=== PATIENT | male | born 1955 | race Caucasian/White ===

== ENCOUNTER 2024-01-31 15:55 | Inpatient (IN) | payer BC, MEDICAID ==
[~2024-01-31] VITALS: Ht 182.9 cm; Wt 142.0 kg
[2024-01-31 16:27] LABS: BASOPHILS % (AUTO) 0.5 % (0-1); EOSINOPHILS # (AUTO) 0.1 X10'3 (0-0.9); EOSINOPHILS % (AUTO) 1.1 % (0-6); HEMATOCRIT 38.2 % (42.0-52.0); HEMOGLOBIN 12.2 g/dl (14.0-17.9); LYMPHOCYTES # (AUTO) 0.9 X10'3 (1.1-4.8); LYMPHOCYTES % (AUTO) 10.9 % (21-51); MEAN CORPUSCULAR HEMOGLOBIN 25.1 PG (27.0-31.0); MEAN CORPUSCULAR HGB CONC 31.9 g/dL (33.0-36.5); MEAN CORPUSCULAR VOLUME 78.5 FL (78-98); MEAN PLATELET VOLUME 7.8 FL (7.4-10.4); MONOCYTES # (AUTO) 0.6 X10'3 (0-0.9); MONOCYTES % (AUTO) 7.5 % (2-12); NEUTROPHILS # (AUTO) 6.8 X10'3 (1.8-7.7); PLATELET COUNT 174 X10'3 (140-440); RED BLOOD COUNT 4.87 X10'6 (4.70-6.10); WHITE BLOOD COUNT 8.5 X10'3 (4.5-11.0)
[2024-01-31 16:57] LABS: ANION GAP 4 (8-16); BLOOD UREA NITROGEN 20 MG/DL (7-18); CALCIUM 8.6 MG/DL (8.5-10.1); CHLORIDE 98 MMOL/L (99-107); CREATININE 0.91 MG/DL (0.60-1.10); GLUCOSE 131 MG/DL (70-104); POTASSIUM 3.5 MMOL/L (3.5-5.1); PRO BRAIN NATRIURETIC PEPTIDE 278 PG/ML (0-125); SODIUM 140 MMOL/L (135-145); TOTAL CARBON DIOXIDE 37.7 MMOL/L (24-32); eCRCL 85 ML/MIN; eGFR 83 ML/MIN
[2024-01-31 17:09] VITALS: PULSE 87; RESP 19; O2SAT 97
[2024-01-31 17:25] LABS: ANISOCYTOSIS 2+; ELLIPTOCYTES FEW; MICROCYTOSIS 1+; PLATELET ESTIMATE NORMAL; POIKILOCYTOSIS FEW; POLYCHROMASIA FEW; STOMATOCYTES FEW; TOTAL CELLS COUNTED 100
[2024-01-31] MEDS ORDERED: ASPI-1265 PO (17:57)
[2024-01-31] MEDS ORDERED: FURO-150 PO (18:00)
[2024-01-31] MEDS ORDERED: GABA800T11 PO (18:03)
[2024-01-31] MEDS ORDERED: BACL20TA11 PO (18:05)
[2024-01-31] MEDS ORDERED: METF-1203 PO (18:06)
[2024-01-31] MEDS ORDERED: HYDR-3965 PO (18:11)
[2024-01-31] MEDS ORDERED: RIVA10TA PO (18:12)
[2024-01-31] MEDS ORDERED: FLO0.4C PO (18:13)
[2024-01-31] MEDS ORDERED: ARIP5TAB12 PO (18:16)
[2024-01-31] MEDS ORDERED: FLUO40CA10 PO (18:17)
[2024-01-31] MEDS ORDERED: EMPA10TA PO (18:18)
[2024-01-31] MEDS ORDERED: OMEP40CA21 PO (18:18)
[2024-01-31] MEDS ORDERED: ATOR40TA PO (18:20)
[2024-01-31] MEDS ORDERED: BUDE10.7 INH (18:21)
[2024-01-31 18:54] VITALS: PULSE 81; RESP 17; O2SAT 95
[2024-01-31 19:22] LABS: ABG BASE EXCESS 7.6 mmol/L (-2.0-2.0); ABG HCO3 36.9 mmol/L (22.0-26.0); ABG OXYGEN SATURATION 95.5 % (94-97); ABG PCO2 (T) 77.6 mmHg (35.0-48.0); ABG PH (T) 7.293 (7.340-7.440); ALLEN'S TEST POSITIVE; FCOHb 1.7 % (0.0-3.9); FHHb 4.4 % (0.0-5.0); FMetHb 0.3 % (0.0-1.5); FO2Hb 93.6 % (94-97); MODE MASK - BIPAP; PATIENT TEMPERATURE 36.7; RESPIRATORY RATE 12 b/min; TIDAL VOLUME 692 mL; TOTAL HEMOGLOBIN 12.4 G/dl (14.0-17.9)
[2024-01-31] MEDS: ipratropium/albuterol 3ml nebule NEB PRN (19:28)
[2024-01-31 19:29] VITALS: PULSE 82; RESP 27; O2SAT 94
[2024-01-31 19:38] VITALS: PULSE 85; RESP 26
[2024-01-31] MEDS ORDERED: magnesium 4gm in 100ml NS 100 ML IV PRN (19:40)
[2024-01-31] MEDS ORDERED: magnesium hydroxide 30ml (MOM) UD suspension PO PRN (19:40)
[2024-01-31] MEDS ORDERED: morphine 2 MG/ML inj. syringe IV PRN ×2 (19:40)
[2024-01-31] MEDS ORDERED: mag hydrox/Alum hydrox/simeth 30ml oral suspension PO PRN (19:40)
[2024-01-31] MEDS ORDERED: magnesium Cl slow-release 64mg tablet PO PRN (19:40)
[2024-01-31] MEDS ORDERED: acetaminophen 325mg tablet PO PRN (19:40)
[2024-01-31] MEDS ORDERED: ondansetron/PF 4mg/2ml inj IV PRN (19:40)
[2024-01-31] MEDS ORDERED: magnesium 2GM in 50ml NS 50 ML IV PRN (19:40)
[2024-01-31] MEDS ORDERED: potassium Cl 40MEQ/1/2NS 520ml 520 ML IV PRN (19:40)
[2024-01-31] MEDS ORDERED: HYDROcodone/acetaminophen 5mg/325mg tablet PO PRN (19:50)
[2024-01-31] MEDS: K and/or MAG REPLACEMENT MC SCH (20:00)
[2024-01-31] MEDS: budesonide 0.5mg/2ml UD nebule IH SCH (21:09)
[2024-01-31] MEDS: baclofen 10mg tablet PO SCH (21:56)
[2024-01-31] MEDS: furosemide 10 MG/1 ML 10ml inj IV SCH (21:56)
[2024-01-31] MEDS: gabapentin 400mg capsule PO SCH (21:57)
[2024-01-31 22:00] VITALS: BP 106/52; PULSE 92; RESP 20; TEMP 98.5; O2SAT 98
[2024-01-31] MEDS: docusate sod 100mg capsule PO SCH (22:12)
[2024-01-31] MEDS ORDERED: glucagon, human recombinant 1mg kit SUBCUT PRN (22:35)
[2024-01-31] MEDS ORDERED: dextrose 50%-water 50ml dispensing syringe IV PRN ×2 (22:35)
[2024-01-31] MEDS ORDERED: DEXTROSE 15 GM of carb/4 tabs (each vial/BOTTLE has 4 tablets) PO PRN ×2 (22:35)
[2024-01-31 23:58] VITALS: PULSE 83; RESP 17; O2SAT 92
[2024-02-01] VITALS (23 sets, daily range): BP systolic 98–145; BP diastolic 55–79; PULSE 65–101; RESP 13–28; TEMP 97.2–98.7; O2SAT 87–99
[2024-02-01] MEDS: albuterol 2.5 MG/3 ML nebule NEB SCH (02:23)
[2024-02-01 06:24] LABS: BASOPHILS % (AUTO) 0.3 % (0-1); EOSINOPHILS # (AUTO) 0.1 X10'3 (0-0.9); EOSINOPHILS % (AUTO) 1.8 % (0-6); HEMATOCRIT 37.3 % (42.0-52.0); HEMOGLOBIN 11.6 g/dl (14.0-17.9); LYMPHOCYTES # (AUTO) 0.6 X10'3 (1.1-4.8); LYMPHOCYTES % (AUTO) 7.5 % (21-51); MEAN CORPUSCULAR HEMOGLOBIN 24.5 PG (27.0-31.0); MEAN CORPUSCULAR HGB CONC 31.2 g/dL (33.0-36.5); MEAN CORPUSCULAR VOLUME 78.7 FL (78-98); MONOCYTES # (AUTO) 0.5 X10'3 (0-0.9); MONOCYTES % (AUTO) 6.9 % (2-12); NEUTROPHILS # (AUTO) 6.2 X10'3 (1.8-7.7); NEUTROPHILS % (AUTO) 83.5 % (42-75); PLATELET COUNT 165 X10'3 (140-440); RED BLOOD COUNT 4.73 X10'6 (4.70-6.10); RED CELL DISTRIBUTION WIDTH 19.3 % (11.5-14.5); WHITE BLOOD COUNT 7.4 X10'3 (4.5-11.0)
[2024-02-01 06:39] LABS: HEMOGLOBIN A1C 6.2 % (4.5-6.2)
[2024-02-01 06:49] LABS: ALANINE AMINOTRANSFERASE 62 U/L (12-78); ALBUMIN 2.8 G/DL (3.4-5.0); ALBUMIN/GLOBULIN RATIO 0.7 (1.1-1.5); ALKALINE PHOSPHATASE 76 IU/L (46-116); ANION GAP 2 (8-16); ASPARTATE AMINO TRANSFERASE 25 U/L (10-37); BILIRUBIN,TOTAL 0.9 MG/DL (0.1-1.0); BLOOD UREA NITROGEN 18 MG/DL (7-18); BUN/CREATININE RATIO 24.3 (10.0-20.0); CALCIUM 8.5 MG/DL (8.5-10.1); CHLORIDE 100 MMOL/L (99-107); CHOL/HDL RATIO 2.3 (0.00-4.99); CHOLESTEROL 102 MG/DL (0-200); CREATININE 0.74 MG/DL (0.60-1.10); GLUCOSE 112 MG/DL (70-104); HDL CHOLESTEROL 45 MG/DL (35-60); LDL CHOLESTEROL 52 MG/DL (50-100); MAGNESIUM 2.6 MG/DL (1.5-2.4); POTASSIUM 3.3 MMOL/L (3.5-5.1); SODIUM 140 MMOL/L (135-145); THYROID STIMULATING HORMONE 1.33 ulU/ml (0.34-4.50); TOTAL PROTEIN 6.7 G/DL (6.4-8.2); TRIGLYCERIDES 45 MG/DL (20-135); eCRCL 105 ML/MIN; eGFR > 90 ML/MIN
[2024-02-01] MEDS: aspirin 81mg tab.chew PO SCH (07:41)
[2024-02-01] MEDS: rivaroxaban 10mg tablet PO SCH (07:42)
[2024-02-01] MEDS: FLUoxetine 20mg capsule PO SCH (07:42)
[2024-02-01] MEDS: tamsulosin 0.4mg capsule PO SCH (07:42)
[2024-02-01] MEDS: aripiprazole 5mg tablet PO SCH (07:42)
[2024-02-01] MEDS: pantoprazole 40mg Tablet.DR PO SCH (07:43)
[2024-02-01] MEDS: atorvastatin 20mg tablet PO SCH (07:43)
[2024-02-01] MEDS: EMPAGLIFLOZIN 10 MG TABLET PO SCH (07:43)
[2024-02-01] MEDS ORDERED: potassium Cl 20 mEq SR tablet PO PRN (08:00)
[2024-02-01] MEDS ORDERED: heparin, porcine 5000 units/ml vial SQ SCH (08:00)
[2024-02-01] MEDS: potassium Cl 20 mEq SR tablet PO PRN (10:01)
[2024-02-01 14:06] LABS: D-DIMER 0.86 MG/L FEU (0-0.50)
[2024-02-01] MEDS: baclofen 10mg tablet PO SCH (14:08)
[2024-02-01] MEDS: methylPREDNISolone sod succ 125mg/2ml vial IV ONE (14:08)
[2024-02-01] MEDS: azithromycin/NS 500mg/250ml 250 ML IV SCH (14:09)
[2024-02-01] MEDS: CefTRIAXone/D5W-Rocephin 1gm 50 ML IV SCH (14:09)
[2024-02-01] MEDS: ipratropium/albuterol 3ml nebule NEB SCH (15:14)
[2024-02-01] MEDS ORDERED: iohexol 350MG/ML 100ml bottle IV ONE (16:39)
[2024-02-01] MEDS: INSULIN LISPRO 100 UNIT/ML INSULN.PEN MULTI-DOSE SQ SCH (17:00)
[2024-02-01] MEDS: sacubitril/valsartan 24mg-26mg tablet PO SCH (19:12)
[2024-02-02] VITALS (20 sets, daily range): BP systolic 96–112; BP diastolic 59–67; PULSE 63–88; RESP 9–26; TEMP 97.4–98.1; O2SAT 87–95
[2024-02-02 07:57] LABS: BASOPHILS % (AUTO) 0.1 % (0-1); EOSINOPHILS % (AUTO) 0 % (0-6); HEMATOCRIT 38.8 % (42.0-52.0); HEMOGLOBIN 12.2 g/dl (14.0-17.9); LYMPHOCYTES # (AUTO) 0.7 X10'3 (1.1-4.8); LYMPHOCYTES % (AUTO) 8.8 % (21-51); MEAN CORPUSCULAR HEMOGLOBIN 24.7 PG (27.0-31.0); MEAN CORPUSCULAR HGB CONC 31.4 g/dL (33.0-36.5); MEAN CORPUSCULAR VOLUME 78.7 FL (78-98); MEAN PLATELET VOLUME 8.1 FL (7.4-10.4); MONOCYTES # (AUTO) 0.5 X10'3 (0-0.9); MONOCYTES % (AUTO) 6.7 % (2-12); NEUTROPHILS # (AUTO) 6.6 X10'3 (1.8-7.7); NEUTROPHILS % (AUTO) 84.4 % (42-75); PLATELET COUNT 203 X10'3 (140-440); RED BLOOD COUNT 4.93 X10'6 (4.70-6.10); RED CELL DISTRIBUTION WIDTH 19.3 % (11.5-14.5); WHITE BLOOD COUNT 7.8 X10'3 (4.5-11.0)
[2024-02-02] MEDS ORDERED: spironolactone 25 MG tablet PO SCH (08:30)
[2024-02-02] MEDS: methylPREDNISolone sod succ 125mg/2ml vial IV SCH (09:13)
[2024-02-02 09:49] LABS: ALANINE AMINOTRANSFERASE 53 U/L (12-78); ALBUMIN 2.9 G/DL (3.4-5.0); ALBUMIN/GLOBULIN RATIO 0.7 (1.1-1.5); ALKALINE PHOSPHATASE 75 IU/L (46-116); ANION GAP 2 (8-16); ASPARTATE AMINO TRANSFERASE 28 U/L (10-37); BILIRUBIN,TOTAL 0.7 MG/DL (0.1-1.0); BLOOD UREA NITROGEN 22 MG/DL (7-18); BUN/CREATININE RATIO 23.4 (10.0-20.0); CALCIUM 9.2 MG/DL (8.5-10.1); CHLORIDE 100 MMOL/L (99-107); CREATININE 0.94 MG/DL (0.60-1.10); GLUCOSE 143 MG/DL (70-104); MAGNESIUM 2.7 MG/DL (1.5-2.4); POTASSIUM 3.4 MMOL/L (3.5-5.1); SODIUM 140 MMOL/L (135-145); TOTAL CARBON DIOXIDE 37.9 MMOL/L (24-32); eCRCL 83 ML/MIN; eGFR 80 ML/MIN
[2024-02-03] VITALS (8 sets, daily range): BP systolic 100–108; BP diastolic 55–64; PULSE 65–76; RESP 12–30; TEMP 96.6–97; O2SAT 92–96
[2024-02-03 06:39] LABS: BASOPHILS % (AUTO) 0.2 % (0-1); EOSINOPHILS % (AUTO) 0 % (0-6); HEMATOCRIT 39.6 % (42.0-52.0); HEMOGLOBIN 12.5 g/dl (14.0-17.9); LYMPHOCYTES # (AUTO) 0.7 X10'3 (1.1-4.8); LYMPHOCYTES % (AUTO) 7.9 % (21-51); MEAN CORPUSCULAR HEMOGLOBIN 24.8 PG (27.0-31.0); MEAN CORPUSCULAR HGB CONC 31.6 g/dL (33.0-36.5); MEAN CORPUSCULAR VOLUME 78.4 FL (78-98); MEAN PLATELET VOLUME 8.1 FL (7.4-10.4); MONOCYTES # (AUTO) 0.5 X10'3 (0-0.9); MONOCYTES % (AUTO) 5.7 % (2-12); NEUTROPHILS # (AUTO) 7.5 X10'3 (1.8-7.7); NEUTROPHILS % (AUTO) 86.2 % (42-75); PLATELET COUNT 211 X10'3 (140-440); RED BLOOD COUNT 5.05 X10'6 (4.70-6.10); RED CELL DISTRIBUTION WIDTH 19.4 % (11.5-14.5); WHITE BLOOD COUNT 8.7 X10'3 (4.5-11.0)
[2024-02-03 07:04] LABS: ALANINE AMINOTRANSFERASE 50 U/L (12-78); ALBUMIN 2.9 G/DL (3.4-5.0); ALBUMIN/GLOBULIN RATIO 0.7 (1.1-1.5); ALKALINE PHOSPHATASE 72 IU/L (46-116); ANION GAP 0 (8-16); ASPARTATE AMINO TRANSFERASE 40 U/L (10-37); BILIRUBIN,TOTAL 0.6 MG/DL (0.1-1.0); BLOOD UREA NITROGEN 26 MG/DL (7-18); BUN/CREATININE RATIO 32.5 (10.0-20.0); CALCIUM 9.2 MG/DL (8.5-10.1); CHLORIDE 103 MMOL/L (99-107); GLUCOSE 130 MG/DL (70-104); MAGNESIUM 2.7 MG/DL (1.5-2.4); POTASSIUM 4.1 MMOL/L (3.5-5.1); SODIUM 141 MMOL/L (135-145); TOTAL CARBON DIOXIDE 38.2 MMOL/L (24-32); eCRCL 97 ML/MIN; eGFR > 90 ML/MIN
[2024-02-03 07:08] LABS: ANISOCYTOSIS 2+; HYPOCHROMASIA 1+; MICROCYTOSIS 1+; PLATELET ESTIMATE NORMAL; POLYCHROMASIA 1+
[2024-02-03] MEDS ORDERED: CEFD300C3 PO (10:10)
[2024-02-03] MEDS ORDERED: FURO-150 PO (10:10)
[2024-02-03] MEDS ORDERED: PRED10TA23 PO (10:10)
[2024-02-03] MEDS ORDERED: SACU1TAB PO (10:10)
[2024-02-03] MEDS ORDERED: LACT1CAP26 PO (18:01)
== END 2024-02-03 12:13 | disposition home health service (06) | DRG 291 ==
LOC: ER 15:56 → ED HOLD 19:40 → UNDOADMIN 19:40 → ED HOLD 20:20 → PCU 3S 22:33
PROVIDERS: ADMIT Surgery; ATTEND Family Medicine
PROC: 5A09357 Assistance with Respiratory Ventilation, Less than 24 Consecutive Hours, Continuous Positive Airway Pressure (ICD-10-PCS; 2024-01-31)
PROC: B32T1ZZ Computerized Tomography (CT Scan) of Left Pulmonary Artery using Low Osmolar Contrast (ICD-10-PCS; principal; 2024-02-01)
PROC: B3201ZZ Computerized Tomography (CT Scan) of Thoracic Aorta using Low Osmolar Contrast (ICD-10-PCS; 2024-02-01)
PROC: B32S1ZZ Computerized Tomography (CT Scan) of Right Pulmonary Artery using Low Osmolar Contrast (ICD-10-PCS; 2024-02-01)
PROC: 5A09357 Assistance with Respiratory Ventilation, Less than 24 Consecutive Hours, Continuous Positive Airway Pressure (ICD-10-PCS; 2024-02-01)
PROC: 5A09357 Assistance with Respiratory Ventilation, Less than 24 Consecutive Hours, Continuous Positive Airway Pressure (ICD-10-PCS; 2024-02-02)
DX: I50.33 Acute on chronic diastolic (congestive) heart failure (principal); J96.21 Acute and chronic respiratory failure with hypoxia; J96.22 Acute and chronic respiratory failure with hypercapnia; J44.0 Chronic obstructive pulmonary disease with (acute) lower respiratory infection; E87.4 Mixed disorder of acid-base balance; Z68.41 Body mass index [BMI] 40.0-44.9, adult; N17.9 Acute kidney failure, unspecified; J44.1 Chronic obstructive pulmonary disease with (acute) exacerbation; E66.2 Morbid (severe) obesity with alveolar hypoventilation; E11.22 Type 2 diabetes mellitus with diabetic chronic kidney disease; I27.20 Pulmonary hypertension, unspecified; M54.9 Dorsalgia, unspecified; G89.29 Other chronic pain; I27.81 Cor pulmonale (chronic); D50.9 Iron deficiency anemia, unspecified; I25.10 Atherosclerotic heart disease of native coronary artery without angina pectoris; N18.2 Chronic kidney disease, stage 2 (mild); Z79.82 Long term (current) use of aspirin; Z79.899 Other long term (current) drug therapy; Z79.84 Long term (current) use of oral hypoglycemic drugs
CPT/HCPCS: 36415; 36600; 71045; 71275; 80048; 80053; 80061; 82803; 82948; 83036; 83605; 83735; 83880; 84132; 84145; 84443; 84484; 85007; 85008; 85018; 85025; 85379; 87040; 87081; 93005; 93306; 94640; 94660; 94760; 97110; 97161; 97530; 99285; A4615; A6590; G0378; J0456; J0696; J1815; J1940; J2919; J3490; J7040; Q9967

== ENCOUNTER 2025-05-01 07:22 | Inpatient (IN) | payer BC, MEDICAID ==
[2025-05-01] VITALS (19 sets, daily range): BP systolic 77–153; BP diastolic 38–96; PULSE 65–103; RESP 16–26; O2SAT 94–99
[~2025-05-01] VITALS: Ht 172.7 cm; Wt 140.1 kg
[~2025-05-01 07:22] MED LIST: ARIP5TAB12 PO; ASPI-1265 PO; ATOR40TA PO; BACL20TA11 PO; BUDE10.7 INH; EMPA10TA PO; FLUO40CA10 PO; FURO-150 PO; GABA-1555 PO; HYDR-3965 PO; LACT1CAP26 PO; METF-1203 PO; OMEP40CA21 PO; RIVA10TA PO; SACU1TAB PO; TAMS-55 PO
[2025-05-01] MEDS: FENTANYL-0.9 % NACL/PF 100 ML ONE (07:39)
[2025-05-01 07:41] LABS: MEAN PLATELET VOLUME 7.9 FL (7.4-10.4); RED CELL DISTRIBUTION WIDTH 18.8 % (11.5-14.5)
[2025-05-01] MEDS ORDERED: ketamine 50mg/5ml syringe IV ONE (07:50)
[2025-05-01] MEDS: ketamine 10mg/ml 20ml inj vial IV ONE (07:52)
[2025-05-01] MEDS: rocuronium 10mg/ml inj IV ONE (07:55)
[2025-05-01] MEDS ORDERED: epiNEPHrine 0.1mg/ml 10ml syringe ONE (08:00)
[2025-05-01 08:06] LABS: CREATININE 0.89 MG/DL (0.60-1.10); PRO BRAIN NATRIURETIC PEPTIDE < 30 PG/ML (0-125); TOTAL CARBON DIOXIDE 29.8 MMOL/L (24-32); eCRCL 76 ML/MIN; eGFR 85 ML/MIN
[2025-05-01 08:12] LABS: ABG BASE EXCESS 5.7 mmol/L (-2.0-3.0); ABG HCO3 36.2 mmol/L (21.0-28.0); ABG OXYGEN SATURATION 96.8 % (94.0-98.0); ABG PCO2 (T) 90.7 mmHg (35.0-48.0); ABG PH (T) 7.219 (7.350-7.450); ABG PO2 (T) 110.6 mmHg (83.0-108.0); ALLEN'S TEST POSITIVE; FCOHb 1.6 % (0.5-1.5); FHHb 3.1 % (0.0-5.0); FIO2 80.0 mmHg/%; FMetHb 0.0 % (0.0-1.5); FO2Hb 95.3 % (94.0-98.0); MODE VENT - AC/PRVC; PATIENT TEMPERATURE 37.0; PEEP 5 cm H2O; RESPIRATORY RATE 16 b/min; TIDAL VOLUME 500 mL; TOTAL HEMOGLOBIN 12.0 G/dl (13.5-17.5)
--- NOTE | 2025-05-01 08:23 | RADIOLOGY REPORT ---
CHEST RADIOGRAPH Indication:CP Technique: Single frontal view of the chest was obtained COMPARISON: January 31, 2024 FINDINGS: Lines and Tubes: Endotracheal tube tip projects approximately 5.3 cm above the level of the samara. Lungs: Diffuse increased prominence of the pulmonary vasculature and right hemidiaphragmatic elevatio n. Pleura: No effusion. No pneumothorax. Cardiomediastinal contours: Unremarkable Bones: Unremarkable IMPRESSION: 1. Diffuse increased prominence of the pulmonary vasculature and right hemidiaphragmatic elevation. 2. Endotracheal tube as above.
[2025-05-01] MEDS ORDERED: propofol 1000mg/100ml bottle 100 ML IV SCH (08:25)
--- NOTE | 2025-05-01 08:41 | Physician Documentation ---
History of Present Illness General Chief Complaint: Respiratory Distress Stated Complaint: ALOC Time Seen by MD: 08:32 History of Present Illness Initial Comments The patient is a 69-year-old male with a history of COPD and CHF who was brought in by ambulance obtunded and in respiratory failure. The patient's caregiver had enough heard from him after an attempted contact and asked police to do a welfare check. They were not able to enter his premises and 911 was summoned. They broke into his house and found him obtunded on the floor. Oxygen saturations were in the low 80s. The oxygen saturations came up with a Ventimask but the patient remained obtunded. GCS on arrival was eight, patient obtunded. He was promptly intubated. Medication Reconciliation Allergies: Coded Allergies: No Known Allergies (Unverified , 05/01/25) Scheduled Aripiprazole (Aripiprazole), 1 TAB PO DAILY, (Reported) Aspirin (Aspir 81), 1 TAB PO DAILY, (Reported) Atorvastatin Calcium (Atorvastatin Calcium), 2 TAB PO DAILY, (Reported) Buprenorphine Hcl (Buprenorphine Hcl), 0.5 TAB SL QAM, (Reported) Buprenorphine Hcl (Buprenorphine Hcl), 1 TAB SL HS, (Reported) Empagliflozin (Jardiance), 1 TAB PO DAILY, (Reported) Fluoxetine Hcl (Fluoxetine Hcl), 1 CAP PO DAILY, (Reported) Fluticasone/Umeclidin/Vilanter (Trelegy Ellipta 100-62.5-25), 1 PUFFS INH DAILY, (Reported) Furosemide (Furosemide), 1 TAB PO DAILY, (Reported) Gabapentin (Gabapentin), 1 TAB PO DAILY, (Reported) Metformin HCl (Metformin HCl), 1 TAB PO DAILY, (Reported) Omeprazole (Omeprazole), 1 CAP PO DAILY, (Reported) Potassium Chloride (Potassium Chloride), 1 TAB PO DAILY, (Reported) Rivaroxaban (Xarelto), 1 TAB PO DAILY, (Reported) Sacubitril/Valsartan (Entresto 24 mg-26 mg Tablet), 1 TAB PO Q12H, (Reported) Silver Sulfadiazine (Ssd), 1 APPLIC TOP DAILY, (Reported) Tamsulosin Hcl* (Flomax*), 1 CAP PO DAILY, (Reported) Scheduled PRN Baclofen (Baclofen), 1 TAB PO TID PRN for MUSCLE SPASM, (Reported) Discontinued Medications Aripiprazole* (Abilify*), 5 MG PO DAILY, (Reported) Discontinued Reason: Other Aspirin (Aspirin), 1 TAB PO DAILY, (Reported) Discontinued Reason: Other Atorvastatin Calcium* (Lipitor*), 1 TAB PO DAILY, (Reported) Discontinued Reason: Other Baclofen (Baclofen), 1 TAB PO TID, (Reported) Discontinued Reason: Other Budesonide/Glycopyr/Formoterol (Breztri Aerosphere Inhaler), 2 PUFFS INH Q12H, (Reported) Discontinued Reason: Other Fluoxetine HCl (Prozac), 1 CAP PO DAILY, (Reported) Discontinued Reason: Other Furosemide* (Lasix*), 1 TAB PO BID Discontinued Reason: Other Hydrocodone Bit/Acetaminophen 5/325 MG (Maurice 5/325 MG), 1 TAB PO Q6H PRN for pain, (Reported) Discontinued Reason: Other Lactobacillus Rhamnosus (Culturelle), 1 CAP PO DAILY Discontinued Reason: Other Omeprazole (Prilosec), 1 CAP PO DAILY, (Reported) Discontinued Reason: Other Sacubitril/Valsartan (Entresto 24 mg-26 mg Tablet), 1 TABLET PO BID Discontinued Reason: Other Tamsulosin Hcl* (Flomax*), 1 CAP PO DAILY, (Reported) Discontinued Reason: Other Past Medical History Past Medical History: Congestive Heart Failure, COPD Review of Systems ROS Unable to obtain due to obtundation. Physical Exam Physical Exam Vital Signs: Temperature: 97.1, Heart Rate: 102, Respiratory Rate: 24, BP: 155/95, Pulse Oximetry: 99, Weight: 145.000 Oxygen Flow Rate: 15.0 Physical Exam Physical Exam Vitals and nursing note reviewed. Constitutional: General: GCS 7-8. Obtunded. Respiratory distress. Appearance: Morbidly obese. HENT: Head: Normocephalic and atraumatic. Mouth/Throat: Mouth: Mucous membranes are moist. Pharynx: Oropharynx is clear. Eyes: General: No scleral icterus. Extraocular Movements: Extraocular movements intact. Pupils: Pupils are equal, round, and reactive to light. Neck: Supple, no Kernig or Brudzinski sign. Cardiovascular: Rate and Rhythm: Normal rate and regular rhythm. Heart sounds: No murmur heard. Pulmonary: Effort: Respiratory distress. Breath sounds: Diminished bilaterally. Abdominal: General: There is no distension. Palpations: There is no fluid wave, hepatomegaly or mass. Tenderness: There is no abdominal tenderness. There is no guarding. Musculoskeletal: General: No swelling or deformity. Neurological: Mental Status: Moved all extremities prior to paralysis and intubation. Procedures Procedures Endotracheal Intubation Time: 7:30 a.m. A time out was performed. My hands were washed immediately prior to the procedure. I wore a surgical cap, mask with protective eyewear, gown and gloves throughout the procedure. The patient was placed on a school bus monitor including continuous pulse oximetry. Rapid Sequence Intubation was conducted. The patient received 20 mg of etomidate for induction and 100 mg of rocuronium for adequate paralysis. Cricoid pressure was maintained from time induction agent was given to time of cuff balloon inflation. Using a 4. Standard geometry laryngoscope an d a size eight mm endotracheal tube with stylet, the patient was intubated on the 1st attempt. The stylet was removed and cuff balloon was inflated. Appropriate endotracheal tube position was confirmed by direct visualization of vocal cord passage, fogging of the tube, CO2 colormetric indicator and symmetric breath sounds. The tube was secured at 27 cm at the lips. Post intubation chest x-ray is pending at this time. No apparent complications noted. PROCEDURE: Ultrasound Guided right internal jugular Central Venous Line Insertion DIAGNOSIS: Respiratory failure and hypotension Procedure Performed by Savi Luis MD INFORMED CONSENT: Informed Consent was obtained. Procedural pause was observed at 7:45 a.m.. I have verified the correct patient , correct procedure, correct position, correct site, and available equipment. The site was marked. PROCEDURE START TIME: 7:45 a.m. PROCEDURE STOP TIME: 8:10 a.m. INDICATION: Need to administer pressors and numerous other medications PROCEDURE IN DETAIL: The patient and ultrasound transducer were prepped and draped in sterile fashion. Using the linear probe covered in a sterile sheath, a short axis view of the vein was obtained. This vein was completely compressible and was identified as separate from the adjacent non-compressible arterial structure. No intraluminal clot was visualized. Longitudinal views of the target vein were also obtained. No intravascular thrombus was identified. Under dynamic ultrasound guidance, an 18 gauge needle was advanced with return of dark red, non-pulsatile blood. A wire was advanced without difficulty. A 0.5 cm incision was made at the skin and the subcutaneous tissue is dilated. The catheter was advanced over the wire via the Seldinger technique and the wire was removed. All ports flushed without difficulty. The catheter was secured in place with sutures and the entrance site covered with a sterile, transparent, semi-permeable dressing With placement of CHG Biopatch. Placement was confirmed by radiography. These images were captured, recorded, and archived. The patient tolerated the procedure well with no complications. Blood loss was minimal. Conclusion: Successful central venous catheterization under ultrasound guidance. Intubation Time of Intubation: 735 Endotracheal Tube Size: 8.0 ETT Confirmation: Ascultation, CO2 Detector, Direct Visualization, Condensation in ETT Progress Results/Orders Results/Orders Orders - SAVI LUIS MD Chest,Single View (05/01/25:26) Monitor (05/01/25 07:26) Saline Lock (05/01/25:) Oxygen (05/01/25:) Culture Blood (05/01/25:) Fentanyl-0.9 % Nacl/Pf (Fentanyl 1,000mc (05/01/25 07:50) Abg (Arterial Blood Gas) (05/01/25 07:50) Cult Sputum + Gram Stain (05/01/25 07:55) Chest,Single View (05/01/25 08:33) Ipratropium/Albuterol Nebule (Ipratrop/A (05/01/25 11:00) Propofol 1000mg/100ml Bottle (Diprivan I (05/01/25 08:40) Ventilator Settings (05/01/25 08:45) Abg (Arterial Blood Gas) (05/01/25 10:00) Echocardiogram (05/01/25 09:51) Norepinephrine 8mg/ 250ml Ns (Norepineph (05/01/25 07:50) Completed Orders - SAVI LUIS MD Chest,Single View (05/01/25:26) Cbc/Diff (05/01/25:) BMP (05/01/25 07:26) PBNP (05/01/25 07:) Electrocardiogram (05/01/25:) Hs Troponin I W Calculations (8/20/25 07:26) Hs Troponin I W Calculations (05/01/25 09:26) Hs Troponin I W Calculations (05/01/25 10:26) Procalcitonin (05/01/25 07:26) Lacticsepsis (05/01/25 07:26) Ketamine 10mg/Ml 20ml Inj (Ketamine 10mg (05/01/25 07:50) Etomidate Inj (Amidate Inj) (05/01/25 07:55) Rocuronium Inj. (Zemuron Inj) (05/01/25 07:55) Potassium Cl 10meq/100ml Bag (Potassium (05/01/25 08:15) Propofol 1000mg/100ml Bottle (Diprivan I (05/01/25 08:25) Chest,Single View (05/01/25 08:33) Cefepime 2gm In D5w 50ml (Cefepime-D5w 2 (05/01/25 08:39) Azithromycin/Ns 500mg/250ml (Zithromax/N (05/01/25 08:35) Potassium Cl 10meq/100ml Bag (Potassium (05/01/25 08:40) Magnesium Sulf-Water 2g/50ml (Magnesium (05/01/25 08:40) * Rt Notification Q1H (05/01/25 08:45) Lactic,2hr (05/01/25 09:02) MG (05/01/25 07:33) Echocardiogram (05/01/25 09:51) CMP (05/01/25 09:51) Iohexol 350mg/Ml 100ml (Omnipaque 350mg/ (05/01/25 10:33) Norepinephrine 8mg/ 250ml Ns (Norepineph (05/01/25 10:33) Electrocardiogram (05/01/25 10:46) Ua W/Microscopic, Cult If Ind (05/01/25 13:51) Medications Received in ER Medications (Trade) Dose Ordered Sig/Phi Route PRN Reason Start Time Stop Time Status Last Admin Dose Admin Cefepime/Dextrose 50 ml @ 100 mls/hr ONCE ONCE IV 05/01/25 08:39 05/01/25 09:08 DC 05/01/25 09:46 100 MLS/HR Azithromycin 250 ml @ 250 mls/hr ONCE ONCE IV 05/01/25 08:35 05/01/25 09:34 DC 05/01/25 10:59 250 MLS/HR Potassium Chloride 100 ml @ 100 mls/hr Q1H IV 05/01/25 08:40 05/01/25 09:39 DC 05/01/25 09:46 100 MLS/HR Magnesium Sulfate 50 ml @ 25 mls/hr ONCE ONCE IV 05/01/25 08:40 05/01/25 10:39 DC 05/01/25 11:04 25 MLS/HR Propofol 100 ml @ 4.35 mls/hr Q23H IV 05/01/25 08:40 05/01/25 09:00 4.35 MLS/HR Norepinephrine Bitartrate 250 ml @ ud STK-MED ONCE IV 05/01/25 10:33 05/01/25 10:34 DC 05/01/25 10:42 0 MLS/HR Vital Signs 05/01/25 05/01/25 05/01/25 05/01/25 07:28 07:39 07:46 07:50 Temp 97.1 Pulse 102 Resp 25 24 35 B/P (MAP) 90/44 76/40 Pulse Ox 89 O2 Flow Rate 15.0 05/01/25 05/01/25 05/01/25 05/01/25 07:52 07:55 07:58 08:01 Pulse 103 105 101 Resp 25 16 B/P (MAP) 77/38 (51) 74/31 (45) Pulse Ox 99 99 100 FiO2 80 05/01/25 05/01/25 05/01/25 05/01/25 08:04 08:04 08:07 08:10 Pulse 92 78 81 B/P (MAP) 125/62 (83) 141/79 141/79 (99) 152/80 (104) Pulse Ox 100 100 100 05/01/25 05/01/25 05/01/25 05/01/25 08:12 08:13 08:16 08:16 Pulse 83 86 102 Resp 24 B/P (MAP) 181/80 167/86 (113) 181/80 (113) Pulse Ox 100 100 99 FiO2 60 05/01/25 05/01/25 05/01/25 05/01/25 08:18 08:19 08:22 08:25 Pulse 102 107 105 103 B/P (MAP) 155/95 (115) 153/96 (115) 155/95 (115) 163/92 (115) Pulse Ox 99 100 100 99 FiO2 60 05/01/25 05/01/25 805/01/25 08:28 08:31 08:34 08:37 Pulse 91 102 107 107 B/P (MAP) 157/84 (108) 156/89 (111) 176/97 (123) 172/88 (116) Pulse Ox 99 99 98 98 05/01/25 05/01/25 05/01/25 05/01/25 08:40 08:43 08:46 08:49 Pulse 116 114 94 79 Resp 25 B/P (MAP) 176/96 (122) 163/86 (111) 155/81 (105) 160/80 (106) Pulse Ox 97 97 97 96 05/01/25 05/01/25 05/01/25 05/01/25 08:52 08:55 09:00 09:01 Pulse 77 77 95 Resp 26 B/P (MAP) 148/73 (98) 146/76 (99) 153/71 153/71 (98) Pulse Ox 96 95 05/01/25 05/01/25 805/01/25 09:04 09:09 09:09 09:10 Pulse 84 83 Resp 24 25 24 B/P (MAP) 137/68 (91) 153/96 136/67 (90) 05/01/25 05/01/25 05/01/25 05/01/25 09:13 09:16 09:19 09:22 Pulse 84 88 95 97 Resp 19 20 17 B/P (MAP) 129/61 (83) 123/67 (85) 120/62 (81) 121/61 (81) 05/01/25 05/01/25 05/01/25 05/01/25 09:25 09:28 09:31 09:34 Pulse 87 109 90 109 Resp 22 19 B/P (MAP) 129/69 (89) 130/64 (86) 140/67 (91) 125/60 (81) 05/01/25 05/01/25 05/01/25 05/01/25 09:37 09:40 09:43 09:46 Pulse 87 82 87 86 Resp 20 24 22 17 B/P (MAP) 130/63 (85) 134/66 (88) 135/58 (83) 128/59 (82) 05/01/25 05/01/25 05/01/25 05/01/25 09:49 09:52 09:55 09:58 Pulse 86 88 79 79 Resp 21 22 24 19 B/P (MAP) 122/63 (82) 127/59 (81) 131/57 (81) 138/58 (84) 05/01/25 05/01/25 05/01/25 05/01/25 10:01 10:04 10:07 10:10 Pulse 82 93 98 87 Resp 15 23 16 24 B/P (MAP) 131/60 (83) 121/54 (76) 05/01/25 05/01/25 05/01/25 05/01/25 10:13 10:16 10:19 10:19 Pulse 77 85 83 Resp 22 23 30 24 B/P (MAP) 114/57 (76) 116/53 (74) 124/56 (78) 05/01/25 05/01/25 05/01/25 05/01/25 10:22 10:24 10:25 10:28 Pulse 74 91 70 92 Resp 24 24 25 20 B/P (MAP) 127/52 (77) 124/55 (78) Pulse Ox 99 FiO2 60 05/01/25 05/01/25 05/01/25 05/01/25 10:31 10:34 10:37 10:40 Pulse 86 87 90 85 Resp 21 17 23 24 Pulse Ox 87 92 05/01/25 05/01/25 05/01/25 05/01/25 10:42 10:43 10:46 10:49 Pulse 97 68 65 Resp 18 24 17 B/P (MAP) 91/47 91/47 (62) 102/60 (74) Pulse Ox 93 93 93 05/01/25 05/01/25 05/01/25 05/01/25 10:52 10:55 10:58 10:59 Pulse 65 59 71 Resp 16 21 24 23 B/P (MAP) 146/108 (121) 129/68 (88) 138/77 (97) Pulse Ox 94 95 95 05/01/25 11:01 Pulse 77 Resp 25 B/P (MAP) 149/79 (102) Pulse Ox 95 Laboratory Tests Test 05/01/25 07:33 05/01/25 08:08 05/01/25 09:19 05/01/25 10:17 White Blood Count 9.2 Red Blood Count 3.84 L Hemoglobin 9.5 L Hematocrit 29.9 L Mean Corpuscular Volume 77.7 L Mean Corpuscular Hemoglobin 24.7 L Mean Corpuscular Hemoglobin Concent 31.8 L Red Cell Distribution Width 18.8 H Platelet Count 189 Mean Platelet Volume 7.9 Neutrophils (%) (Auto) 81.2 H Lymphocytes (%) (Auto) 10.6 L Monocytes (%) (Auto) 6.6 Eosinophils (%) (Auto) 1.3 Basophils (%) (Auto) 0.3 Neutrophils # (Auto) 7.5 Lymphocytes # (Auto) 1.0 L Monocytes # (Auto) 0.6 Eosinophils # (Auto) 0.1 Basophils # (Auto) 0.0 CBC Comment Platelet Estimate Normal Red Blood Cell Morphology Perf Polychromasia Few Hypochromasia 1+ Basophilic Stippling Anisocytosis 2+ Microcytosis 1+ Portillo Cells Few Sodium Level 145 142 Potassium Level 2.7 *L 4.1 Chloride Level 107 97 L Carbon Dioxide Level 29.8 35.0 H Anion Gap 8 10 Blood Urea Nitrogen 25 H 28 H Creatinine 0.89 1.02 Estimated GFR/1.73 m2 85 72 BUN/Creatinine Ratio 28.1 H 27.5 H Glucose Level 215 H 231 H Lactic Acid Level 2.6 H 3.4 H Calcium Level 7.3 L 9.2 # Magnesium Level 1.8 Troponin I High Sensitivity 7 35 Pro-B-Type Natriuretic Peptide < 30 Albumin 2.4 L 3.3 L Procalcitonin 0.12 Chemistry Comments Blood Gas Specimen Type Arterial Blood Gas Puncture Site Lr O2 Saturation 96.8 Arterial Blood pH (Temp corrected) 7.219 *L Arterial Blood pCO2 (Temp correct) 90.7 *H Arterial Blood pO2 (Temp corrected) 110.6 H Arterial Blood PO2/FiO2 Ratio 1.38 Arterial Blood HCO3 36.2 H Arterial Blood Base Excess 5.7 H Arterial Blood Oxyhemoglobin 95.3 Arterial Blood Carboxyhemoglobin 1.6 H Arterial Blood Methemoglobin 0.0 Arterial Blood Deoxyhemoglobin 3.1 Alfonzo Test Positive Blood Gas Hemoglobin 12.0 L Blood Gas Temperature 37.0 Blood Gas Set Respiration Rate 16 Blood Gas Modality Vent - ac/prvc FiO2 80.0 Blood Gas Tidal Volume 500 Blood Gas PEEP 5 Blood Gas Critical Value Called To Gloria box md Total Bilirubin 0.6 Aspartate Amino Transf (AST/SGOT) 32 Alanine Aminotransferase (ALT/SGPT) 30 Alkaline Phosphatase 91 Troponin I High Sens Percent Delta 400 Troponin I Hi Sens Absolute Change 28 Total Protein 7.5 Globulin 4.2 Albumin/Globulin Ratio 0.8 L Hemoglobin A1c 6.3 H Test 05/01/25 10:18 05/01/25 10:19 Blood Gas Specimen Type Arterial Blood Gas Puncture Site Lr O2 Saturation 91.5 L Arterial Blood pH (Temp corrected) 7.317 L Arterial Blood pCO2 (Temp correct) 73.0 *H Arterial Blood pO2 (Temp corrected) 71.5 L Arterial Blood PO2/FiO2 Ratio 1.17 Arterial Blood HCO3 36.5 H Arterial Blood Base Excess 7.8 H Arterial Blood Oxyhemoglobin 90.3 L Arterial Blood Carboxyhemoglobin 1.0 Arterial Blood Methemoglobin 0.3 Arterial Blood Deoxyhemoglobin 8.4 H Alfonzo Test Positive Blood Gas Hemoglobin 13.1 L Blood Gas Temperature 37.2 Blood Gas Set Respiration Rate 24 Blood Gas Modality Vent - ac/prvc FiO2 60.0 Blood Gas Tidal Volume 500 Blood Gas PEEP 5 Blood Gas Critical Value Called To md Yasmine Troponin I High Sensitivity 45 Troponin I High Sens Percent Delta 28 Troponin I Hi Sens Absolute Change 10 Microbiology Date/Time Source Procedure Growth Status 05/01/25 10:22 Sputum Endotracheal Suction Respiratory Culture - Preliminary Resulted 05/01/25 08:49 Blood Central Line Blood Culture - Preliminary NEGATIVE (LESS THAN 24 HOURS) Resulted Medical Decision Making Findings This 69-year-old male presented in an obtunded state with respiratory failure and was intubated as per my procedure note. Post intubation he did develop worsening hypotension which was treated with push dose epinephrine and norepinephrine. A central line was started as per my procedure note. I have started him on antibiotics after obtaining blood cultures. He will be admitted to the ICU. 8:55 a.m.: Left a message on Dr. Fink's phone. Departure Disposition: ADMITTED INPATIENT Admitted to Inpatient Unit: to quality control expert Impression: Primary Impression: Acute respiratory failure Referrals: NO PRIMARY CARE PROVIDER (PCP) Critical Care Note Critical Care Note Due to the high probability of respiratory failure required my full attention for about 40 minutes while the patient was critical. I provided critical care services which included medication orders, frequent re-evaluations, response to treatment, renewing test results, and discussing case with various consultants. Unless specifically stated all procedures, tests, and medications were performed/interpreted under the direct supervision of the emergency department physician. Signature Scribe Signature: . Attestation: . SAVI LUIS MD May 01, 2025 08:41
--- NOTE | 2025-05-01 08:58 | RADIOLOGY REPORT ---
CHEST RADIOGRAPH Indication:CRITICAL LINE PLACEMENT Technique: Single frontal view of the chest was obtained Comparison: DI CHEST,SINGLE VIEW on DOS: 05/01/25 FINDINGS: Lines and Tubes: Endotracheal tube tip projects approximately 5.3 cm above the level of the samara. Lungs: Diffuse increased prominence of the pulmonary vasculature and right hemidiaphragmatic elevatio n. Pleura: No effusion. No pneumothorax. Cardiomediastinal contours: Unremarkable Bones: Unremarkable IMPRESSION: 1. Diffuse increased prominence of the pulmonary vasculature and right hemidiaphragmatic elevation. 2. Endotracheal tube as above.
[2025-05-01] MEDS: propofol 1000mg/100ml bottle 100 ML IV SCH (09:00)
[2025-05-01] MEDS: potassium CL 10mEq/100ml bag 100 ML IV ONE (09:02)
[2025-05-01] MEDS: potassium CL 10mEq/100ml bag 100 ML IV SCH ×2 (09:02→09:46)
[2025-05-01] MEDS: etomidate 2mg/ml inj. IV ONE (09:04)
[2025-05-01] MEDS: FENTANYL-0.9 % NACL/PF 100 ML IV SCH (09:09)
[2025-05-01 09:30] LABS: PLATELET ESTIMATE NORMAL
[2025-05-01] MEDS: CEFEPIME 2gm in D5W 50mL 50 ML IV ONE (09:46)
--- NOTE | 2025-05-01 10:05 | ELECTROCARDIOGRAPH REPORT ---
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
[2025-05-01 10:18] LABS: CREATININE 1.02 MG/DL (0.60-1.10); TOTAL CARBON DIOXIDE 35.0 MMOL/L (24-32); eCRCL 66 ML/MIN; eGFR 72 ML/MIN
[2025-05-01 10:23] LABS: ABG BASE EXCESS 7.8 mmol/L (-2.0-3.0); ABG HCO3 36.5 mmol/L (21.0-28.0); ABG OXYGEN SATURATION 91.5 % (94.0-98.0); ABG PCO2 (T) 73.0 mmHg (35.0-48.0); ABG PH (T) 7.317 (7.350-7.450); ABG PO2 (T) 71.5 mmHg (83.0-108.0); ALLEN'S TEST POSITIVE; FCOHb 1.0 % (0.5-1.5); FHHb 8.4 % (0.0-5.0); FIO2 60.0 mmHg/%; FMetHb 0.3 % (0.0-1.5); FO2Hb 90.3 % (94.0-98.0); MODE VENT - AC/PRVC; PATIENT TEMPERATURE 37.2; PEEP 5 cm H2O; RESPIRATORY RATE 24 b/min; TIDAL VOLUME 500 mL; TOTAL HEMOGLOBIN 13.1 G/dl (13.5-17.5)
[2025-05-01] MEDS: NORepinephrine 8mg/ 250ml NS 250 ML IV ONE (10:42)
[2025-05-01] MEDS: azithromycin/NS 500mg/250ml 250 ML IV ONE (10:59)
[2025-05-01] MEDS ORDERED: potassium Cl 20 mEq SR tablet PO PRN ×2 (11:00)
[2025-05-01] MEDS ORDERED: magnesium sulf-water 4G/100mL 100 ML IV PRN (11:00)
[2025-05-01] MEDS ORDERED: magnesium Cl slow-release 64mg tablet PO PRN (11:00)
[2025-05-01] MEDS: ipratropium/albuterol 3ml nebule NEB SCH (11:00)
[2025-05-01] MEDS ORDERED: mag hydrox/Alum hydrox/simeth 30ml oral suspension PO PRN (11:00)
[2025-05-01] MEDS ORDERED: ondansetron/PF 4mg/2ml inj IV PRN (11:00)
[2025-05-01] MEDS ORDERED: potassium Cl 40MEQ/1/2NS 520ml 520 ML IV PRN (11:00)
[2025-05-01] MEDS ORDERED: magnesium sulf-water 2g/50mL 50 ML IV PRN (11:00)
[2025-05-01] MEDS ORDERED: magnesium hydroxide 30ml (MOM) UD suspension PO PRN (11:00)
[2025-05-01] MEDS: magnesium sulf-water 2g/50mL 50 ML IV ONE (11:04)
--- NOTE | 2025-05-01 12:18 | RADIOLOGY REPORT ---
CLINICAL INFORMATION: Acute loss of consciousness. TECHNIQUE: Axial imaging was obtained through the brain without contrast. Coronal and sagittal reform atted images were obtained, reviewed, and stored. Images were reviewed in brain and bone windows. Al l CT scans at this medical facility are performed using dose modulation techniques as appropriate to a performed exam including the following: Automated exposure control was utilized; adjustment of the MA and/or KV according to patient size; and use of iterative reconstruction technique. CTDIvol = 67.2 2 mGy DLP = 1365.64 mGy-cm COMPARISON: None FINDINGS: There is no acute intracranial hemorrhage. No mass effect or midline shift. The ventricles and sulci are within normal limits in size for age. Basal cisterns are patent. The calvarium is unre markable. Mild mucosal thickening of the paranasal sinuses. Partially visualized endotracheal tube a nd orogastric tube. IMPRESSION: No CT evidence of acute intracranial abnormality.
--- NOTE | 2025-05-01 12:30 | RADIOLOGY REPORT ---
Indication: DISTENSION Technique: CT axial images of the abdomen and pelvis are obtained without contrast. Coronal and sagit anju reformats were obtained. Radiation Dose Information: CTDI volume is 35.5 mGy. Dose-length product is 1898 mGy*cm Comparison: None FINDINGS: There is limited interpretation of the abdomen and pelvis without administration of intravenous contr ast. Bibasilar atelectasis/ consolidation, [id number]-left. 7 mm left lower lobe pulmonary nodule. Tiny right pleural effusion. Adrenal glands, spleen, pancreas unremarkable in shape. Cholelithiasis. Liver demonstrates hepatomeg sandy. No hydronephrosis. 2 mm nonobstructing left renal calculus. Right renal vascular calcification. Joseph ateral renal cysts. Nasogastric tube projecting towards the distal stomach. Small bowel loops are normal in caliber. Large volume stool in the colon. No secondary signs for appendicitis. Abdominal aortic atherosclerotic disease. Bladder decompressed by Gaspar catheter. No free pelvic flu id. No inguinal lymphadenopathy. [id number] bilateral sacroiliac degenerative joint disease. Severe lumbar degenerative disc dis ease. Reversal normal lumbar spine curvature. 6 mm retrolisthesis of L4 upon L5. IMPRESSION: Limited evaluation without contrast. Large volume stool within the colon. Bibasilar pulmonary atelectasis / consolidation, [id number]-left. 7 mm left lower lobe pulmonary nodule. Recommend follow-up per Fleischner society criteria. Cholelithiasis. 2 mm nonobstructing left renal calculus. Severe lumbar degenerative disc disease and reversal of normal lumbar curvature. Other findings as described.
--- NOTE | 2025-05-01 12:38 | RADIOLOGY REPORT ---
CTA Chest with intravenous contrast INDICATION: Suspeced pulmonary embolism COMPARISON: CT CTA CHEST PE on DOS: 02/01/24 TECHNIQUE: Multidetector spiral CTA of the chest was performed of the chest with intravenous contrast . PULMONARY ANGIOGRAPHY PROTOCOL was utilized using a bolus-tracking technique centered on the main p ulmonary artery. Axial, coronal and sagittal multiplanar and MIP reformats were performed. Radiation Dose : 1. Chest: CTDI volume is 25 mGy. Dose-length product is 986.7 mGy*cm The dose indicators for CT are the volume Computed Tomography (CT) Dose Index (CTDIvol) and the Dose Length Product (DLP), and are measured in units of mGy and mGy-cm, respectively. These indicators are not patient dose, but values generated from the CT scanner acquisition factors. The report includes radiation exposure data for exposures received during this examination. Findings: Pulmonary artery: No pulmonary embolism Lower neck: Endotracheal tube in satisfactory position. Lungs: Multifocal right lung airspace disease. Heart/Vascular Structures: Normal heart size. No pericardial effusion. Lymph Nodes: No adenopathy Pleura: No pleural effusion or significant pneumothorax. Musculoskeletal: No acute osseous abnormality. Soft tissues: Normal. Upper abdomen: Cholelithiasis. Hepatomegaly. Enteric catheter in the stomach. IMPRESSION: No pulmonary embolism. Multifocal right lung airspace disease.
--- NOTE | 2025-05-01 13:16 | ELECTROCARDIOGRAPH REPORT ---
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
[2025-05-01 14:13] LABS: LEUKOCYTE ESTERASE ,URINE NEGATIVE (Neg); NITRITES, URINE NEGATIVE (Neg); OCCULT BLOOD,URINE TRACE-INTACT (Neg)
[2025-05-01 14:19] LABS: UA COLLECTION TYPE FOLEY CATH
[2025-05-01 14:20] LABS: SQUAMOUS EPITHELIAL CELL,UR FEW /LPF (FEW)
[2025-05-01 14:28] LABS: URINE AMPHETAMINE SCREEN NEGATIVE (Neg); URINE BARBITUATE SCREEN NEGATIVE (Neg); URINE BENZODIAZEPINES SCREEN NEGATIVE (Neg); URINE CANNABINOID SCREEN NEGATIVE (Neg); URINE COCAINE SCREEN NEGATIVE (Neg); URINE METHADONE SCREEN NEGATIVE (Neg); URINE OPIATE SCREEN NEGATIVE (Neg); URINE PHENCYCLIDINE SCREEN NEGATIVE (Neg)
[2025-05-01] MEDS ORDERED: SILV25CR21 TOP (15:13)
[2025-05-01] MEDS ORDERED: FLUT1BLS4 INH (15:13)
[2025-05-01] MEDS ORDERED: BUPR2TAB11 SL ×2 (15:13)
[2025-05-01] MEDS ORDERED: POTA-366 PO (15:15)
[2025-05-01] MEDS ORDERED: BACL20TA PO (15:15)
[2025-05-01] MEDS ORDERED: FLUO40CA PO (15:15)
[2025-05-01] MEDS ORDERED: GABA-1555 PO (15:15)
[2025-05-01] MEDS ORDERED: ASPI-611 PO (15:16)
[2025-05-01] MEDS ORDERED: ATOR40TA72 PO (15:16)
[2025-05-01] MEDS ORDERED: ARIP5TAB53 PO (15:16)
[2025-05-01] MEDS ORDERED: OMEP20CA16 PO (15:18)
[2025-05-01] MEDS ORDERED: SACU1TAB PO (15:18)
[2025-05-01] MEDS ORDERED: FURO80TA3 PO (15:18)
[2025-05-01] MEDS: ringers solution, lacted 1,000 ML IV SCH (15:37)
--- NOTE | 2025-05-01 16:15 | HISTORY AND PHYSICAL-Residence ---
History & Physical Providers to CC Resident Creating Document: EDILBERTO STEVENS, RES CC: MATTHIAS MEDINA MD ~ History of Present Illness Primary Medical Doctor: unk Reason for Admit\Complaint: Altered mental status History of Present Illness A 69-year-old male with PMH of COPD and CHF was brought in by the EMS after he was found obtunded at his house. Patient's caregiver tried to contact him, requested for a welfare check by the police as the patient did not respond. They were not able to enter into his), 911 was called in the broke into the house to find him obtunded on the floor. Patient had low oxygen saturations in the range of 80s that improved with Venturi mask with the patient remained obtunded with a GCS of eight on arrival to the ED. for patient was intubated for acute respiratory failure. In the ED, patient was found to have low blood pressures requiring vasopressor support to maintain a map of greater than 65. Allergies: Coded Allergies: No Known Allergies (Unverified , 05/01/25) Home Medications Home Medications Active Reported Furosemide 80 Mg Tablet 1 Tab PO DAILY Omeprazole 20 Mg Capsule.dr 1 Cap PO DAILY Entresto 24 mg-26 mg Tablet (Sacubitril/Valsartan) 24 Mg-26 Mg Tablet 1 Tab PO Q12H Metformin HCl 500 Mg Tablet 1 Tab PO DAILY Aspir 81 (Aspirin) 81 Mg Tablet.dr 1 Tab PO DAILY Aripiprazole 5 Mg Tablet 1 Tab PO DAILY Atorvastatin Calcium 40 Mg Tablet 2 Tab PO DAILY Flomax* (Tamsulosin HCl) 0.4 Mg Cap.sr.24h 1 Cap PO DAILY Baclofen 20 Mg Tablet 1 Tab PO TID PRN Potassium Chloride 20 Meq Tablet.er 1 Tab PO DAILY Fluoxetine Hcl 40 Mg Capsule 1 Cap PO DAILY Gabapentin 800 Mg Tablet 1 Tab PO DAILY Xarelto (Rivaroxaban) 10 Mg Tablet 1 Tab PO DAILY Buprenorphine Hcl 2 Mg Tab.subl 1 Tab SL HS Buprenorphine Hcl 2 Mg Tab.subl 0.5 Tab SL QAM Ssd (Silver Sulfadiazine) 1 % Cream..g. 1 Applic TOP DAILY Trelegy Ellipta 100-62.5-25 (Fluticasone/Umeclidin/Vilanter) 100-62.5 Blst.w.dev 1 Puffs INH DAILY Jardiance (Empagliflozin) 10 Mg Tablet 1 Tab PO DAILY Past Medical History Past Medical History CHF CAD CAD status post stent placement Substance abuse disorder COPD CORRINA Past Surgical History Surgical History Comment Catheterization with stent placement Back surgery Past Social History Social History Comment Quit smoking about four years ago per previous records-used to smoke two packs of cigarettes per day Further social history unknown ROS ROS Could not be obtained as the patient is intubated and sedated Exam Vitals: Vital Signs Date Time Temp Pulse Resp B/P (MAP) Pulse Ox O2 Delivery O2 Flow Rate FiO2 05/01/25 15:44 81 22 97 05/01/25 15:43 55 05/01/25 14:44 118/68 (85) 05/01/25 13:49 100.6 05/01/25 12:34 15.0 General: General: Morbidly obese male, intubated and sedated HEENT: PERRLA, no icterus, pallor, lymphadenopathy, carotid bruit Respiratory system: Decreased bilateral breath sounds in the lower regions CVS: S1-S2 heard, no murmurs/rubs/gallop GI: Soft, nontender, no organomegaly, no guarding/rigidity, bowel sounds present Neuro: Could not be examined as the patient is sedated Extremities: 2+ pedal edema present in bilateral feet Skin: Warm and dry Diagnostic Data Last Recorded Lab Results: 05/01/25 0733 05/01/25 0919 Additional Plan Assessment: A 69-year-old male with a past medical history of COPD, CORRINA and HTN was brought in by the EMS as the patient was found obtunded at his home. Patient is admitted for the evaluation management of acute hypoxemic/hypercapnic respiratory failure and altered mental status secondary to CO2 narcosis. Plan: Neuro: AMS 2/2 CO2 narcosis versus toxic encephalopathy Follow up with U tox HCT ruled out any acute intracranial abnormality. GCS: 4 On fentanyl drip, wean as tolerated RASS goal: 0 to -1 Please see respiratory section for further plan Respiratory: Acute hypoxemic/hypercapnic respiratory failure 2/2 CO2 narcosis, acute exacerbation of heart failure Unknown baseline respiratory status COPD, not in acute exacerbation Underlying sleep apnea, non compliant CXR: Diffuse increased prominence of the pulmonary vasculature and right hemidiaphragmatic elevation CTA chest: No PE, Multifocal right lung airspace disease. Intubated, PRVC/500/24/5/60%, PF ratio: 119 ABG revealed respiratory acidosis with pCO2 at 90.7 DuoNeb q.4h p.r.n. PE, ruled out Will Consider antibiotics in view of CTA chest findings Please see CVS section for heart failure management CVS: HFpEF, acute exacerbation CAD status post stent placement ? Cor pulmonale History of previous DVT EF: 60-65% We will consider optimization with GDM T Lasix as tolerated Continue aspirin, Xarelto Hematology: Microcytic anemia Follow up with iron studies Endocrine: Prediabetes: Hyperglycemia, A1c: 6.3 Hyper/hypoglycemic protocol GI: IV Protonix prophylaxis Code status: Full code Diet: NPO Anticoagulation: Aspirin, Xarelto Disposition: Admit to ICU, follow up with U tox Edilberto Stevens MD Internal Medicine, PGY 2 Date of Service: May 01, 2025 Billing Provider: MATTHIAS MEDINA MD, SIVA, RES May 01, 2025 16:15
[2025-05-01] MEDS ORDERED: ipratropium/albuterol 3ml nebule NEB PRN (16:25)
[2025-05-01] MEDS: NORepinephrine 8mg/ 250ml NS 250 ML IV PRN (17:02)
--- NOTE | 2025-05-01 18:12 | CONSULTATION REPORT ---
Consult Providers to CC ~ History of Present Illness Reason for Admit\Complaint: Altered mental status, was found obtunded History of Present Illness A 69-year-old male with PMH of COPD and CHF was brought in by the EMS after he was found obtunded at his house. Patient's caregiver tried to contact him, requested for a welfare check by the police as the patient did not respond. They were not able to enter into his), 911 was called in the broke into the house to find him obtunded on the floor. Patient had low oxygen saturations in the range of 80s that improved with Venturi mask with the patient remained obtunded with a GCS of eight on arrival to the ED. for patient was intubated for acute respiratory failure. In the ED, patient was found to have low blood pressures requiring vasopressor support to maintain a map of greater than 65. Patient is intubated unable to provide me any history. Patient was seen in ER bed 5 today. Allergies: Coded Allergies: No Known Allergies (Unverified , 05/01/25) Home Medications Home Medications Active Reported Furosemide 80 Mg Tablet 1 Tab PO DAILY Omeprazole 20 Mg Capsule.dr 1 Cap PO DAILY Entresto 24 mg-26 mg Tablet (Sacubitril/Valsartan) 24 Mg-26 Mg Tablet 1 Tab PO Q12H Metformin HCl 500 Mg Tablet 1 Tab PO DAILY Aspir 81 (Aspirin) 81 Mg Tablet.dr 1 Tab PO DAILY Aripiprazole 5 Mg Tablet 1 Tab PO DAILY Atorvastatin Calcium 40 Mg Tablet 2 Tab PO DAILY Flomax* (Tamsulosin HCl) 0.4 Mg Cap.sr.24h 1 Cap PO DAILY Baclofen 20 Mg Tablet 1 Tab PO TID PRN Potassium Chloride 20 Meq Tablet.er 1 Tab PO DAILY Fluoxetine Hcl 40 Mg Capsule 1 Cap PO DAILY Gabapentin 800 Mg Tablet 1 Tab PO DAILY Xarelto (Rivaroxaban) 10 Mg Tablet 1 Tab PO DAILY Buprenorphine Hcl 2 Mg Tab.subl 1 Tab SL HS Buprenorphine Hcl 2 Mg Tab.subl 0.5 Tab SL QAM Ssd (Silver Sulfadiazine) 1 % Cream..g. 1 Applic TOP DAILY Trelegy Ellipta 100-62.5-25 (Fluticasone/Umeclidin/Vilanter) 100-62.5 Blst.w.dev 1 Puffs INH DAILY Jardiance (Empagliflozin) 10 Mg Tablet 1 Tab PO DAILY Past Medical History Past Medical History CHF CAD CAD status post stent placement Substance abuse disorder COPD CORRINA Past Surgical History Surgical History Comment Catheterization with stent placement Back surgery Past Social History Social History Comment Quit smoking about four years ago per previous records-used to smoke two packs of cigarettes per day Further social history unknown ROS ROS Could not be obtained as the patient is intubated and sedated Exam Vitals: Vital Signs Date Time Temp Pulse Resp B/P (MAP) Pulse Ox O2 Delivery O2 Flow Rate FiO2 05/01/25 17:12 114/60 05/01/25 17:12 24 05/01/25 17:00 101.1 74 96 Mechanical Ventilator 65 05/01/25 16:39 15.0 General: General-patient is intubated lethargic, morbidly obese HEENT-atraumatic normocephalic, neck supple without elevated JVD, Eyes-no icterus or pallor seen in eyes Chest-decreased breath sounds to auscultation bilaterally, patient is intubated Heart-S1-S2 normal, regular heart rate no murmur Abdomen bowel sounds positive on auscultation, soft nondistended nontender no guarding, no rigidity Skin no active skin rash Neurology-lethargic unable to communicate his needs Extremity- no pedal edema unable to move all 4 extremities Diagnostic Data Last Recorded Lab Results: 05/01/25 0733 05/01/25 0919 Diagnostic Data: CXR: Diffuse increased prominence of the pulmonary vasculature and right hemidiaphragmatic elevation CTA chest: No PE, Multifocal right lung airspace disease. Additional Plan 2/2 CO2 narcosis versus toxic encephalopathy Acute hypoxemic/hypercapnic respiratory failure 2/2 CO2 narcosis, acute exacerbation of heart failure Unknown underlying respiratory status COPD, not in acute exacerbation Underlying sleep apnea, non compliant HFpEF, acute exacerbation CAD status post stent placement ? Cor pulmonale History of previous DVT Microcytic anemia Prediabetes: GI: IV Protonix prophylaxis Code status: Full code Diet: NPO Anticoagulation: Aspirin, Xarelto We will continue to follow patient along with credentialer team. Patient's all labs and diagnostic workup reviewed. Date of Service: May 01, 2025 Billing Provider: LISSA TOURE MD Common Visit Codes: [id number] INP/OBS CARE (HIGH) LISSA TOURE MD May 01, 2025 18:12
--- NOTE | 2025-05-01 18:29 | CARDIOLOGY REPORT ---
APPROVED REPORT EXAM: Comprehensive 2D, Doppler, and color-flow Echocardiogram. Patient Location: ED5 Blood Pressure: 91/47 mmHg Heart Rate: 87 bpm Rhythm: NSR Indications CHF COPD [employer] Plasterer is Jevon Lyons MD Previous echo 02/01/24 [facility] 55-60% EF ; tr MR TR 2D Dimensions LA Diam4.7 cm IVSd 1.2 (0.7-1.1cm) LVDd 5.8 cm PWd 1.2 (0.7-1.1cm) IVSs 1.7 (0.8-1.2cm) LVDs 4.0 (2.5-4.0cm) Aortic Root(2D) 3.1 cm PWs 1.5 (0.8-1.2cm) LVOT Diameter 2.39 (1.8-2.4cm) LVEF(%) 57.9 (>50%) FS (%) 31.0 % SV 97.5 ml CO 6.8 L/min Aortic Valve AoV Peak Corwin. 209.7 cm/s AoV VTI 34.8 cm AO Peak GR. 17.6 mmHg AO Mean GR. 8 mmHg LVOT VTI 25.92 cm LVOT Peak Corwin. 138.7 cm/s IVETH(VTI)/BSA 3.35 cm2/m2 IVETH (VTI) 3.35 cm2 Mitral Valve MV E Velocity 77.5 cm/s MV Peak Gr. 4 mmHg MV DECEL TIME 220 ms MV A Velocity 62.4 cm/s MV PHT 68 ms E/A Ratio 1.2 MVA (PHT) 3.24 cm2 MV VMax97.5 cm/s TDI Medial E' P. V 10.03 cm/s E/Medial E' 7.7 Tricuspid Valve RAP ESTIMATE 10 mmHg Pulmonary Vein S1 Velocity 35.8 cm/s D2 Velocity 37.2 cm/s PVa Awlwrqkg81.7 cm/s PVa [id number] msec LEFT VENTRICLE LV is mildly dilated with mild concentric hypertrophy. Overall systolic function is normal. LVEF is 6 0-65%. RIGHT VENTRICLE RV appears mildly dilated with normal contractility. ATRIA Left atrium is moderately dilated. AORTIC VALVE Probable trileaflet AV is sclerotic with no stenosis. No insufficiency. MITRAL VALVE MV is thickened with mild annular calcification and no stenosis. Trace mitral regurgitation. TRICUSPID VALVE The tricuspid valve is normal in structure. Trace tricuspid regurgitation. PULMONIC VALVE Pulmonic valve is not well visualized. GREAT VESSELS The aortic root is normal in size. IVC is not well visualized. PERICARDIUM There is no pericardial effusion. Other Information Study Quality: Poor Conclusion LV is mildly dilated with mild concentric hypertrophy. Overall systolic function is normal. LVEF is 6 0-65%. RV appears mildly dilated with normal contractility. Left atrium is moderately dilated. Probable trileaflet AV is sclerotic with no stenosis. No insufficiency. MV is thickened with mild annular calcification and no stenosis. Trace mitral regurgitation. The tricuspid valve is normal in structure. Trace tricuspid regurgitation. There is no pericardial effusion.
[2025-05-01] MEDS: docusate sod 100mg capsule PO SCH (20:00)
[2025-05-01] MEDS: K and/or MAG REPLACEMENT MC SCH (20:00)
[2025-05-01] MEDS: cefepime 1GM/NS ADD-VANTAGE 100 ML IV SCH (22:09)
[2025-05-01] MEDS: VANCOMYCIN 2GM/400ML H20 (PEG) 400 ML IV ONE (23:00)
[2025-05-02] VITALS (48 sets, daily range): BP systolic 83–116; BP diastolic 46–69; PULSE 7–98; RESP 20–31; O2SAT 92–96
--- NOTE | 2025-05-02 00:38 | PROGRESS NOTE ---
Progress Note Dictate Providers to CC ~ Antibiotic Ordered?: Yes Objective Vitals Vital Signs Date Time Temp Pulse Resp B/P (MAP) Pulse Ox O2 Delivery O2 Flow Rate FiO2 05/01/25 23:19 65 24 Mechanical Ventilator 65 05/01/25 23:14 94 05/01/25 19:58 110/61 05/01/25 18:00 100.6 05/01/25 16:39 15.0 Lab Results: 05/01/25 0733 05/01/25 0919 Problem\Assessment\Plan Additional Plan Night TeleICU coverage Found down, respiratory failure now intubated in shock, PNA, bacteremia (prelim GPC per RN) Intubated and sedated Hypoxic and hypercapnic Respiratory failure continue vent support, repeat ABG, BD Pna: Abx Bacteremia: follow cultures, added vancomycin, consider Echo if persistently positive Shock: levophed Check ck to R/O Rhabdo CCT 60mins MD DANA Marquez,ELIE Singh MD May 02, 2025 00:38
[2025-05-02 02:26] LABS: ABG BASE EXCESS 10.6 mmol/L (-2.0-3.0); ABG HCO3 34.9 mmol/L (21.0-28.0); ABG OXYGEN SATURATION 95.3 % (94.0-98.0); ABG PCO2 (T) 47.2 mmHg (35.0-48.0); ABG PH (T) 7.490 (7.350-7.450); ABG PO2 (T) 82.4 mmHg (83.0-108.0); ALLEN'S TEST POSITIVE; FCOHb 1.0 % (0.5-1.5); FHHb 4.6 % (0.0-5.0); FIO2 65.0 mmHg/%; FMetHb 0.3 % (0.0-1.5); FO2Hb 94.1 % (94.0-98.0); MODE VENT - AC; PATIENT TEMPERATURE 38.0; PEEP 5 cm H2O; RESPIRATORY RATE 24 b/min; TIDAL VOLUME 500 mL; TOTAL HEMOGLOBIN 11.5 G/dl (13.5-17.5)
[2025-05-02 03:37] LABS: MEAN PLATELET VOLUME 8.3 FL (7.4-10.4); RED CELL DISTRIBUTION WIDTH 18.8 % (11.5-14.5)
[2025-05-02 03:56] LABS: CREATININE 0.93 MG/DL (0.60-1.10); PHOSPHORUS 2.5 MG/DL (2.3-4.5); TOTAL CARBON DIOXIDE 34.0 MMOL/L (24-32); eCRCL 73 ML/MIN; eGFR 81 ML/MIN
[2025-05-02] MEDS: potassium Cl 20mEq/100mL bag 100 ML IV PRN (05:02)
[2025-05-02] MEDS: acetaZOLAMIDE IV 500mg inj IV ONE ×2 (05:33→05:38)
--- NOTE | 2025-05-02 06:07 | RADIOLOGY REPORT ---
CHEST RADIOGRAPH Indication: ventilator Technique: Single frontal view of the chest was obtained COMPARISON: CT CTA CHEST PE W/ IV CONTRAST on DOS: 05/01/25, DI CHEST,SINGLE VIEW on DOS: 05/01/25, DI CHEST,SINGLE VIEW on DOS: 05/01/25, CT CTA CHEST PE on DOS: 02/01/24, DI CHEST,SINGLE VIEW on DOS: 01/30 FINDINGS: Lines and Tubes: Interval advancement of the endotracheal tube such that the tip now projects approxi mately 3.1 cm above the level of the samara. Remaining lines and tubes unchanged. Lungs: Diminished lung volumes with concomitant exaggeration of the pulmonary vasculature. Small bila teral pleural effusions. No pneumothorax. Cardiomediastinal contours: Unremarkable Bones: Unremarkable IMPRESSION: 1. Small bilateral pleural effusions. 2. Interval advancement of endotracheal tube such that the tip projects proximally 3.1 cm above the l evel of the samara. Remaining lines and tubes unchanged.
[2025-05-02] MEDS ORDERED: mag hydrox/Alum hydrox/simeth 30ml oral suspension OGT PRN (07:17)
[2025-05-02] MEDS ORDERED: magnesium hydroxide 30ml (MOM) UD suspension OGT PRN (07:17)
[2025-05-02] MEDS ORDERED: potassium Cl 20 mEq SR tablet OGT PRN ×2 (07:18)
[2025-05-02 07:45] LABS: ABG BASE EXCESS 9.4 mmol/L (-2.0-3.0); ABG HCO3 34.9 mmol/L (21.0-28.0); ABG OXYGEN SATURATION 96.4 % (94.0-98.0); ABG PCO2 (T) 54.0 mmHg (35.0-48.0); ABG PH (T) 7.432 (7.350-7.450); ABG PO2 (T) 99.6 mmHg (83.0-108.0); ALLEN'S TEST POSITIVE; FCOHb 0.2 % (0.5-1.5); FHHb 3.6 % (0.0-5.0); FIO2 60.0 mmHg/%; FMetHb 0.3 % (0.0-1.5); FO2Hb 95.9 % (94.0-98.0); MODE VENT - AC/PRVC; PATIENT TEMPERATURE 38.0; PEEP 5 cm H2O; RESPIRATORY RATE 22 b/min; TIDAL VOLUME 500 mL; TOTAL HEMOGLOBIN 11.2 G/dl (13.5-17.5)
[2025-05-02] MEDS ORDERED: POTASSIUM CHLORIDE 20 MEQ/15 ML oral solution OGT PRN (07:49)
[2025-05-02] MEDS: EMPAGLIFLOZIN 10 MG TABLET OGT SCH (07:58)
[2025-05-02] MEDS: docusate sodium 100mg/10ml UD cup OGT SCH (07:59)
[2025-05-02] MEDS ORDERED: rivaroxaban 10mg tablet OGT SCH (08:00)
[2025-05-02] MEDS ORDERED: enoxaparin 40mg/0.4ml syringe SUBCUT SCH (08:00)
[2025-05-02] MEDS: POTASSIUM CHLORIDE 20 MEQ/15 ML oral solution OGT ONE (12:41)
[2025-05-02] MEDS: rivaroxaban 15mg tablet OGT SCH (13:10)
[2025-05-02] MEDS: POTASSIUM CHLORIDE 20 MEQ/15 ML oral solution OGT SCH (18:00)
--- NOTE | 2025-05-02 18:27 | PROGRESS NOTE- Residence ---
Progress Note - Resident Providers to CC Resident Creating Document: EDILBERTO STEVENS RES CC: MATTHIAS MEDINA MD ~ Antibiotic Timeout Antibiotic Ordered?: Yes Subjective Patient continues to be intubated and sedated. Patient is started on antibiotics and started on diuresis in view of severe pulmonary edema. No acute overnight events. Patient received one dose of Diamox in the morning. Objective Vital Signs Date Time Temp Pulse Resp B/P (MAP) Pulse Ox O2 Delivery O2 Flow Rate FiO2 05/02/25 17:48 100.9 77 22 114/51 (72) 94 Mechanical Ventilator 60 05/01/25 16:39 15.0 Result Diagram: 05/02/25 0230 05/02/25 1134 General: Morbidly obese male, intubated and sedated HEENT: PERRLA, no icterus, pallor, lymphadenopathy, carotid bruit Respiratory system: Decreased bilateral breath sounds in the lower regions CVS: S1-S2 heard, no murmurs/rubs/gallop GI: Soft, nontender, no organomegaly, no guarding/rigidity, bowel sounds present Neuro: Could not be examined as the patient is sedated Extremities: 2+ pedal edema present in bilateral feet Skin: Warm and dry Assessment Assessment A 69-year-old male with a past medical history of COPD, CORRINA and HTN was brought in by the EMS as the patient was found obtunded at his home. Patient is admitted for the evaluation management of acute hypoxemic/hypercapnic respiratory failure and altered mental status secondary to CO2 narcosis. Plan Plan AMS 2/2 CO2 narcosis & overdosing of gabapentin Toxic encephalopathy, ruled out U tox positive for fentanyl but the results have been skewed as sample was collected after the patient was supported on fentanyl drip HCT ruled out any acute intracranial abnormality. GCS: 4 On fentanyl and propofol drips, wean as tolerated RASS goal: 0 to -1 Please see respiratory section for further plan Respiratory: Acute hypoxemic/hypercapnic respiratory failure 2/2 CO2 narcosis, acute exacerbation of heart failure & Multifocal pneumonia Unknown baseline respiratory status COPD, not in acute exacerbation Underlying sleep apnea, non compliant PE, ruled out Intubated, PRVC/500/24/5/60%, PF ratio: 119 ABG revealed respiratory acidosis with pCO2 at 90.7-improving (down to 50.4) DuoNeb q.4h p.r.n. Started on cefepime, we will probably changed to ceftriaxone in view of respiratory and blood cultures showing positive for GPC in short pairs and chains Please see CVS section for heart failure management CVS: HFpEF, acute exacerbation CAD status post stent placement ? Cor pulmonale History of previous DVT Hypovolemic shock EF: 60-65% We will consider optimization with GDM T Lasix as tolerated-received one dose of IV Lasix 60 mg On norepinephrine drip Continue aspirin 81 mg once daily, Xarelto 20 mg once daily, atorvastatin 80 mg once daily Hematology: Microcytic anemia Follow up with iron studies Endocrine: Prediabetes: Hyperglycemia, A1c: 6.3 Hyper/hypoglycemic protocol GI: IV Protonix prophylaxis Code status: Full code Diet: NPO Anticoagulation: Aspirin, Xarelto Disposition: Continue care in CICU, adequate diuresis and antibiotic coverage Edilberto Stevens MD Internal Medicine, PGY 2 Date of Service: May 02, 2025 Billing Provider: MATTHIAS MEDINA MD, SIVA, RES May 02, 2025 18:27
--- NOTE | 2025-05-02 19:04 | PROGRESS NOTE ---
Daily Progress Note Providers to CC ~ Antibiotic Timeout Antibiotic Ordered?: Yes Subjective Patient remains intubated on a ventilator and sedated-the patient is septic his cultures are negative thus far Objective Vital Signs Date Time Temp Pulse Resp B/P (MAP) Pulse Ox O2 Delivery O2 Flow Rate FiO2 05/02/25 17:48 100.9 77 22 114/51 (72) 94 Mechanical Ventilator 60 05/01/25 16:39 15.0 Result Diagram: 05/02/25 0230 05/02/25 1134 Gen. Intubated and sedated on a mechanical ventilator Lungs clear to ascultation bilaterally, no wheezes rales or rhonchi appreciated Heart normal sinus rhythm no murmurs rubs or clicks noted Abdomen soft nontender bowel sounds are normoactive Lower extremities no clubbing cyanosis, 2+ pitting edema appreciated bilaterally Problem\Assessment\Plan # CO2 narcosis with metabolic encephalopathy # acute hypoxic hypercapnic respiratory failure # acute exacerbation of chronic COPD # sepsis On DuoNeb q.4 hours IV cefepime Norepinephrine drip # acute exacerbation of chronic HFpEF On IV Lasix # microcytic anemia Monitor daily CBC Iron studies # fcj-hjfyxir-jvzyrojwd diabetes mellitus And a hyper and hypoglycemic protocol # DVT prophylaxis On Xarelto Date of Service: May 02, 2025 Billing Provider: RAHEEM BAEZ DO Common Visit Codes: [id number] INP/OBS CARE(HIGH) RAHEEM BAEZ DO May 02, 2025 19:04
[2025-05-02 20:28] LABS: CREATININE 1.15 MG/DL (0.60-1.10); TOTAL CARBON DIOXIDE 35.4 MMOL/L (24-32); eCRCL 59 ML/MIN; eGFR 63 ML/MIN
[2025-05-02] MEDS: cefepime 1GM in D5W 50mL 50 ML IV SCH (21:30)
[2025-05-03] VITALS (47 sets, daily range): BP systolic 89–129; BP diastolic 47–68; PULSE 72–107; RESP 19–24; O2SAT 90–97
--- NOTE | 2025-05-03 02:46 | PROGRESS NOTE ---
Progress Note Dictate Providers to CC ~ Antibiotic Ordered?: Yes Objective Vitals Vital Signs Date Time Temp Pulse Resp B/P (MAP) Pulse Ox O2 Delivery O2 Flow Rate FiO2 05/03/25 01:05 22 55 05/03/25 01:05 76 92 05/03/25 01:00 100.8 119/53 (75) Mechanical Ventilator 05/01/25 16:39 15.0 Lab Results: 05/02/25 0230 05/02/252011 Problem\Assessment\Plan Additional Plan Night TeleICU coverage Discussed with RN and the charge nurse Found down, respiratory failure now intubated in shock, PNA, bacteremia (prelim GPC per RN) Intubated and sedated Hypoxic and hypercapnic Respiratory failure, Daily SBT as tolerated Pna: Abx Bacteremia: follow cultures, targeted abx coverage consider Echo if persistently positive Shock: levophe to maintain MAP 65 CCT 60mins MD DANA Marquez,ELIE Singh MD May 03, 2025 02:46
[2025-05-03 02:58] LABS: MEAN PLATELET VOLUME 8.1 FL (7.4-10.4); RED CELL DISTRIBUTION WIDTH 18.9 % (11.5-14.5)
[2025-05-03 03:11] LABS: % IRON SATURATION 12 % (11-46); CREATININE 1.05 MG/DL (0.60-1.10); PHOSPHORUS 2.6 MG/DL (2.3-4.5); TOTAL CARBON DIOXIDE 34.9 MMOL/L (24-32); eCRCL 64 ML/MIN; eGFR 70 ML/MIN
[2025-05-03 03:42] LABS: ABG BASE EXCESS 6.6 mmol/L (-2.0-3.0); ABG HCO3 31.8 mmol/L (21.0-28.0); ABG OXYGEN SATURATION 95.9 % (94.0-98.0); ABG PCO2 (T) 52.0 mmHg (35.0-48.0); ABG PH (T) 7.411 (7.350-7.450); ABG PO2 (T) 93.1 mmHg (83.0-108.0); ALLEN'S TEST POSITIVE; FCOHb 1.4 % (0.5-1.5); FHHb 4.0 % (0.0-5.0); FIO2 55.0 mmHg/%; FMetHb 0.3 % (0.0-1.5); FO2Hb 94.3 % (94.0-98.0); MODE VENT - AC; PATIENT TEMPERATURE 38.5; PEEP 5 cm H2O; RESPIRATORY RATE 22 b/min; TIDAL VOLUME 500 mL; TOTAL HEMOGLOBIN 11.4 G/dl (13.5-17.5)
--- NOTE | 2025-05-03 06:55 | RADIOLOGY REPORT ---
CHEST RADIOGRAPH Indication: ventilator Technique: Single frontal view of the chest was obtained COMPARISON: DI CHEST,SINGLE VIEW on DOS: 05/02/25, CT CTA CHEST PE W/ IV CONTRAST on DOS: 05/01/25, DI CHEST,SINGLE VIEW on DOS: 05/01/25, DI CHEST,SINGLE VIEW on DOS: 05/01/25, CT CTA CHEST PE on DOS: 01/31 FINDINGS: Lines and Tubes: Unchanged. Lungs: Moderate interval progression in diffuse patchy multifocal bilateral pulmonary airspace diseas e. Pleura: No definite effusion. No pneumothorax. Cardiomediastinal contours: Unremarkable Bones: Unremarkable IMPRESSION: 1. Moderate interval progression in Diffuse patchy multifocal bilateral pulmonary airspace disease. 2. Lines and tubes unchanged.
[2025-05-03] MEDS: COMMUNICATION ORDER 1 EA MISC MC ONE (10:40)
--- NOTE | 2025-05-03 12:18 | PROGRESS NOTE- Residence ---
Progress Note - Resident Providers to CC Resident Creating Document: NICK STEVENS, [place] CC: MATTHIAS MEDINA MD ~ Antibiotic Timeout Antibiotic Ordered?: Yes Subjective Patient continues to be intubated and sedated. Chest x-ray seems to be relatively versus than the previous. Continuous diuresis has been started. Patient's oxygen requirements is getting better gradually. Objective Vital Signs Date Time Temp Pulse Resp B/P (MAP) Pulse Ox O2 Delivery O2 Flow Rate FiO2 05/03/25 11:00 101.1 92 21 99/53 (68) 94 Mechanical Ventilator 55 05/01/25 16:39 15.0 Result Diagram: 05/03/2521905/03/25219 General: Morbidly obese male, intubated and sedated HEENT: PERRLA, no icterus, pallor, lymphadenopathy, carotid bruit Respiratory system: Decreased bilateral breath sounds in the lower regions CVS: S1-S2 heard, no murmurs/rubs/gallop GI: Soft, nontender, no organomegaly, no guarding/rigidity, bowel sounds present Neuro: Could not be examined as the patient is sedated Extremities: 2+ pedal edema present in bilateral feet Skin: A 5 x 6 cm irregular shaped blister with peeling of skin, Warm and dry Assessment Assessment A 69-year-old male with a past medical history of COPD, CORRINA and HTN was brought in by the EMS as the patient was found obtunded at his home. Patient is admitted for the evaluation management of acute hypoxemic/hypercapnic respiratory failure and altered mental status secondary to CO2 narcosis. Plan Plan AMS 2/2 CO2 narcosis & overdosing of gabapentin Toxic encephalopathy, ruled out On fentanyl and propofol drips, wean as tolerated RASS goal: 0 to -1 Please see respiratory section for further plan Respiratory: Acute hypoxemic/hypercapnic respiratory failure 2/2 CO2 narcosis, acute exacerbation of heart failure & Multifocal Aspiration pneumonia Unknown baseline respiratory status COPD, not in acute exacerbation Underlying sleep apnea, non compliant PE, ruled out Intubated, PRVC/500/22/5/55%, PF ratio: 125 ABG revealed respiratory acidosis with pCO2 at 90.7, POA - improving (down to 52) DuoNeb q.4h p.r.n. Changed to ceftriaxone from tomorrow, B/C positive for GPC in short chains and pairs. Please see CVS section for heart failure management CVS: HFpEF, acute exacerbation CAD status post stent placement ? Cor pulmonale History of previous DVT Hypovolemic shock EF: 60-65% We will consider optimization with GDM T Lasix as tolerated - IV Lasix 40 mg q.6h, metolazone 10 mg via NGT q.12h On norepinephrine drip Continue aspirin 81 mg once daily, Xarelto 20 mg once daily, atorvastatin 80 mg once daily Hematology: Microcytic anemia Low iron, TIBC Started on IV Ferrlecit 125 mg once daily Endocrine: Prediabetes: Hyperglycemia, A1c: 6.3 Hyper/hypoglycemic protocol GI: IV Protonix prophylaxis Code status: Full code Diet: NPO Anticoagulation: Aspirin, Xarelto Disposition: Continue care in CICU, adequate diuresis and antibiotic coverage Nick Stevens MD Internal Medicine, PGY 2 Date of Service: May 03, 2025 Billing Provider: MATTHIAS MEDINA MD, SIVA, RES May 03, 2025 12:18
[2025-05-03] MEDS: sodium ferric gluc complex inj 125 MG in normal saline 100ml IV soln 100 ML IV SCH (14:00)
[2025-05-03] MEDS: acetaminophen 325mg/10.15ml oral unit dose solution OGT PRN (15:23)
[2025-05-03] MEDS: INSULIN LISPRO 100 UNIT/ML INSULN.PEN MULTI-DOSE SQ SCH (20:00)
--- NOTE | 2025-05-03 21:49 | PROGRESS NOTE ---
Daily Progress Note Providers to CC ~ Antibiotic Timeout Antibiotic Ordered?: Yes Subjective The patient remains septic on a Levophed drip and intubated he is in restraints as he keeps trying to pull out his endotracheal tube. Objective Vital Signs Date Time Temp Pulse Resp B/P (MAP) Pulse Ox O2 Delivery O2 Flow Rate FiO2 05/03/25 21:26 75 19 97 55 05/03/25 21:00 100.8 107/61 (76) Mechanical Ventilator 05/01/25 16:39 15.0 Result Diagram: 05/03/2521905/03/25219 Gen. Intubated and sedated on a mechanical ventilator Lungs clear to ascultation bilaterally, no wheezes rales or rhonchi appreciated Heart normal sinus rhythm no murmurs rubs or clicks noted Abdomen soft nontender bowel sounds are normoactive Lower extremities no clubbing cyanosis, 2+ pitting edema appreciated bilaterally Problem\Assessment\Plan # CO2 narcosis with metabolic encephalopathy # acute hypoxic hypercapnic respiratory failure # acute exacerbation of chronic COPD # sepsis On DuoNeb q.4 hours IV cefepime Norepinephrine drip 05/03 cefepime was discontinued and the patient is started on IV Rocephin remains on a norepinephrine drip # acute exacerbation of chronic HFpEF On IV Lasix metaxalone # microcytic anemia Monitor daily CBC Iron studies demonstrates a mixed anemia including anemia of chronic disease and iron-deficiency # enp-fwaqake-djpqdiptl diabetes mellitus And a hyper and hypoglycemic protocol # DVT prophylaxis On Xarelto Date of Service: May 03, 2025 Billing Provider: RAHEEM BAEZ DO Common Visit Codes: [id number] INP/OBS CARE(HIGH) RAHEEM BAEZ DO May 03, 2025 21:49
[2025-05-04] VITALS (46 sets, daily range): BP systolic 82–112; BP diastolic 48–66; PULSE 75–106; RESP 15–34; O2SAT 91–96
[2025-05-04 02:25] LABS: MEAN PLATELET VOLUME 8.3 FL (7.4-10.4); RED CELL DISTRIBUTION WIDTH 18.7 % (11.5-14.5)
[2025-05-04 02:35] LABS: CREATININE 1.19 MG/DL (0.60-1.10); PHOSPHORUS 3.4 MG/DL (2.3-4.5); TOTAL CARBON DIOXIDE 37.2 MMOL/L (24-32); eCRCL 57 ML/MIN; eGFR 61 ML/MIN
[2025-05-04 03:17] LABS: ABG BASE EXCESS 10.5 mmol/L (-2.0-3.0); ABG HCO3 34.6 mmol/L (21.0-28.0); ABG OXYGEN SATURATION 90.8 % (94.0-98.0); ABG PCO2 (T) 45.5 mmHg (35.0-48.0); ABG PH (T) 7.502 (7.350-7.450); ABG PO2 (T) 62.0 mmHg (83.0-108.0); ALLEN'S TEST Modified; FCOHb 1.3 % (0.5-1.5); FHHb 9.1 % (0.0-5.0); FIO2 55.0 mmHg/%; FMetHb 0.3 % (0.0-1.5); FO2Hb 89.3 % (94.0-98.0); MODE vent- ac prvc; PATIENT TEMPERATURE 37.9; PEEP 5 cm H2O; RESPIRATORY RATE 22 b/min; TIDAL VOLUME 500 mL; TOTAL HEMOGLOBIN 12.4 G/dl (13.5-17.5)
[2025-05-04] MEDS: POTASSIUM CHLORIDE 20 MEQ/15 ML oral solution OGT PRN (03:38)
--- NOTE | 2025-05-04 06:31 | RADIOLOGY REPORT ---
CHEST RADIOGRAPH Indication: ventilator Technique: Single frontal view of the chest was obtained COMPARISON: DI CHEST,SINGLE VIEW on DOS: 05/03/25, DI CHEST,SINGLE VIEW on DOS: 05/02/25, CT CTA CHEST PE W/ IV CONTRAST on DOS: 05/01/25, DI CHEST,SINGLE VIEW on DOS: 05/01/25, DI CHEST,SINGLE VIEW on DOS: 05/01/25 FINDINGS: Lines and Tubes: Unchanged. Lungs: Stable small bilateral pleural effusions. Mild interval decrease in diffuse increased prominen ce of the pulmonary vasculature. Mild right lower lung zone atelectasis. No pneumothorax. Cardiomediastinal contours: Unremarkable Bones: Unremarkable IMPRESSION: 1. Interval decrease in diffuse increased prominence of the pulmonary vasculature. 2. Stable small bilateral pleural effusions. 3. Mild right lower lung zone atelectasis. 4. Lines and tubes unchanged.
[2025-05-04] MEDS: CefTRIAXone/D5W-Rocephin 1gm 50 ML IV SCH (08:40)
--- NOTE | 2025-05-04 10:33 | PROGRESS NOTE ---
Subjective Subjective Patient continues to be intubated and sedated. Interval improvement of chest x- ray. Currently hypotensive. Reason for visit: Pulmonary critical care follow-up Reviewed: Care Plan, H&P, Labs, Medications, Radiology Review of Systems Changes from previous H/P or p: No Changes Daily Progress Note Exam Vitals Vital Signs Date Time Temp Pulse Resp B/P (MAP) Pulse Ox O2 Delivery O2 Flow Rate FiO2 05/04/25 09:54 108/60 05/04/25 09:32 22 05/04/25 09:00 101.3 99 94 Mechanical Ventilator 60 05/01/25 16:39 15.0 Result Diagram: 05/04/25 0155 05/04/25 0155 Exam General: Morbidly obese male, intubated and sedated HEENT: PERRLA, no icterus, pallor, lymphadenopathy, carotid bruit Respiratory system: Decreased bilateral breath sounds in the lower regions CVS: S1-S2 heard, no murmurs/rubs/gallop GI: Soft, nontender, no organomegaly, no guarding/rigidity, bowel sounds present Neuro: Could not be examined as the patient is sedated Extremities: 2+ pedal edema present in bilateral feet Skin: A 5 x 6 cm irregular shaped blister with peeling of skin, Warm and dry VTE VTE Risk Score VTE Risk Score Reference Ranges: Score 0-1 = Low Risk (Aggressive mobilization; early ambulation; no VTE prophylaxis required) Score 2: Moderate Risk (Intermittent/Pneumatic Compression Device OR Lovenox/Heparin/Coumadin) Score 3-4: High Risk (Intermittent/Pneumatic Compression Device AND Lovenox/Heparin/Coumadin) Score > or = 5: Highest Risk (Intermittent/Pneumatic Compression Device AND Lovenox/Heparin/Coumadin) Assessment/Plan Assessment A 69-year-old male with a past medical history of COPD, CORRINA and HTN was brought in by the EMS as the patient was found obtunded at his home. Patient is admitted for the evaluation management of acute hypoxemic/hypercapnic respiratory failure and altered mental status secondary to CO2 narcosis. Plan AMS 2/2 CO2 narcosis & overdosing of gabapentin Toxic encephalopathy, ruled out On fentanyl and propofol drips, wean as tolerated RASS goal: 0 to -1 Please see respiratory section for further plan Respiratory: Acute hypoxemic/hypercapnic respiratory failure 2/2 CO2 narcosis, acute exacerbation of heart failure & Multifocal Aspiration pneumonia Unknown baseline respiratory status COPD, not in acute exacerbation Underlying sleep apnea, non compliant PE, ruled out Intubated, PRVC/500/22/5/60%. DuoNeb q.4h p.r.n. On ceftriaxone Please see CVS section for heart failure management CVS: HFpEF, acute exacerbation Hypotension CAD status post stent placement ? Cor pulmonale History of previous DVT Hypovolemic shock EF: 60-65% We will consider optimization with GDM T On norepinephrine drip Continue aspirin 81 mg once daily, Xarelto 20 mg once daily, atorvastatin 80 mg once daily D/C lasix Hematology: Microcytic anemia Low iron, TIBC Started on IV Ferrlecit 125 mg once daily Endocrine: Prediabetes: Hyperglycemia, A1c: 6.3 Hyper/hypoglycemic protocol GI: IV Protonix prophylaxis Code status: Full code Diet: NPO Anticoagulation: Aspirin, Xarelto Disposition: Continue care in CICU, adequate antibiotic coverage CC time 35minutes Edilberto Shelby MD Internal Medicine, PGY 2 Case discussed during morning rounds as well as morning report and multidisciplinary rounds. I agree with the above assessment. Expected Outcome/Goals Expected Outcomes/Goals: Tolerance to TF, wt maintenance, bowel regularity, skin integrity, BG 140-180 mg/dL MATTHIAS MEDINA MD May 04, 2025 10:33
--- NOTE | 2025-05-04 21:37 | PROGRESS NOTE ---
Daily Progress Note Providers to CC ~ Antibiotic Timeout Antibiotic Ordered?: Yes Subjective The patient remains intubated and continues to spike fevers and remains in restraints has not improved since yesterday Objective Vital Signs Date Time Temp Pulse Resp B/P (MAP) Pulse Ox O2 Delivery O2 Flow Rate FiO2 05/04/25 21:13 65 05/04/25 21:03 84 22 93 05/04/25 20:00 101.1 104/55 (71) Mechanical Ventilator 05/01/25 16:39 15.0 Result Diagram: 05/04/25 0155 05/04/25 1622 Gen. Intubated and sedated on a mechanical ventilator Lungs clear to ascultation bilaterally, no wheezes rales or rhonchi appreciated Heart normal sinus rhythm no murmurs rubs or clicks noted Abdomen soft nontender bowel sounds are normoactive Lower extremities no clubbing cyanosis, 2+ pitting edema appreciated bilaterally Problem\Assessment\Plan # CO2 narcosis with metabolic encephalopathy # acute hypoxic hypercapnic respiratory failure # acute exacerbation of chronic COPD # sepsis On DuoNeb q.4 hours IV cefepime Norepinephrine drip 05/03 cefepime was discontinued and the patient is started on IV Rocephin remains on a norepinephrine drip 05/03 remains septic on norepinephrine drip and intubated # acute exacerbation of chronic HFpEF On IV Lasix metaxalone # microcytic anemia Monitor daily CBC Iron studies demonstrates a mixed anemia including anemia of chronic disease and iron-deficiency # [id number]-gdzptemzj diabetes mellitus And a hyper and hypoglycemic protocol # DVT prophylaxis On Xarelto Date of Service: May 04, 2025 Billing Provider: RAHEEM BAEZ DO Common Visit Codes: [id number] INP/OBS CARE(HIGH) RAHEEM BAEZ DO May 04, 2025 21:37
[2025-05-05] VITALS (48 sets, daily range): BP systolic 76–137; BP diastolic 45–80; PULSE 71–134; RESP 12–27; O2SAT 88–97
[2025-05-05 02:45] LABS: MEAN PLATELET VOLUME 8.7 FL (7.4-10.4)
[2025-05-05 02:49] LABS: RED CELL DISTRIBUTION WIDTH 19.2 % (11.5-14.5)
[2025-05-05 03:09] LABS: CREATININE 0.89 MG/DL (0.60-1.10); TOTAL CARBON DIOXIDE 29.9 MMOL/L (24-32); eCRCL 76 ML/MIN; eGFR 85 ML/MIN
[2025-05-05 03:20] LABS: ABG BASE EXCESS 7.9 mmol/L (-2.0-3.0); ABG HCO3 31.3 mmol/L (21.0-28.0); ABG OXYGEN SATURATION 93.4 % (94.0-98.0); ABG PCO2 (T) 38.5 mmHg (35.0-48.0); ABG PH (T) 7.526 (7.350-7.450); ABG PO2 (T) 66.2 mmHg (83.0-108.0); ALLEN'S TEST Modified; FCOHb 1.1 % (0.5-1.5); FHHb 6.5 % (0.0-5.0); FIO2 55.0 mmHg/%; FMetHb 0.3 % (0.0-1.5); FO2Hb 92.1 % (94.0-98.0); MODE vent- ac prvc; PATIENT TEMPERATURE 36.6; PEEP 5 cm H2O; RESPIRATORY RATE 22 b/min; TIDAL VOLUME 500 mL; TOTAL HEMOGLOBIN 12.3 G/dl (13.5-17.5)
[2025-05-05 03:31] LABS: PHOSPHORUS 2.5 MG/DL (2.3-4.5)
--- NOTE | 2025-05-05 06:14 | RADIOLOGY REPORT ---
EXAM: DI CHEST,SINGLE VIEW HISTORY: ventilator COMPARISON: DI CHEST,SINGLE VIEW on DOS: 05/04/25, DI CHEST,SINGLE VIEW on DOS: 05/03/25, DI CHEST,SING LE VIEW on DOS: 05/02/25, CT CTA CHEST PE W/ IV CONTRAST on DOS: 05/01/25, DI CHEST,SINGLE VIEW on DOS: 05/01/25 TECHNIQUE: Portable AP view of the chest was performed. FINDINGS: Endotracheal tube is re-identified with its tip 2.5 cm above the samara. OG tube is re-identified wi th its tip distal to the GE junction. There are diffuse interstitial opacities throughout the lungs. The left hemidiaphragm is partially obscured. No pneumothorax. The heart is not enlarged. There is a bundant overlying adipose tissue. IMPRESSION: 1. Mechanical ventilation with endotracheal and OG tubes as above. 2. Interstitial prominence is suggestive of CHF. Additionally, confluence opacity in the left lung b ase partially obscures the left hemidiaphragm and may represent atelectasis, pneumonia, and/or pleura l effusion. 3. Obesity.
--- NOTE | 2025-05-05 12:24 | PROGRESS NOTE ---
Subjective Subjective Patient continues to be intubated and sedated with propofol and fentanyl. Responding despite being on fentanyl 250 mics per hour and on propofol. Interval improvement of chest x-ray. Currently hypotensive with a blood pressure of 93/55. Reason for visit: Pulmonary critical care follow-up Reviewed: Care Plan, H&P, Labs, Medications, Radiology Daily Progress Note Exam Vitals Vital Signs Date Time Temp Pulse Resp B/P (MAP) Pulse Ox O2 Delivery O2 Flow Rate FiO2 05/05/25 12:00 100.2 121 15 114/57 (76) 90 High Flow Nasal Cannula 15.0 05/05/25 10:44 55 Result Diagram: 05/05/2522605/05/25226 Exam General: Morbidly obese male, intubated and sedated HEENT: PERRLA, no icterus, pallor, lymphadenopathy, carotid bruit Respiratory system: Decreased bilateral breath sounds in the lower regions CVS: S1-S2 heard, no murmurs/rubs/gallop GI: Soft, nontender, no organomegaly, no guarding/rigidity, bowel sounds present Neuro: Could not be examined as the patient is sedated Extremities: 2+ pedal edema present in bilateral feet Skin: A 5 x 6 cm irregular shaped blister with peeling of skin, Warm and dry VTE VTE Risk Score VTE Risk Score Reference Ranges: Score 0-1 = Low Risk (Aggressive mobilization; early ambulation; no VTE prophylaxis required) Score 2: Moderate Risk (Intermittent/Pneumatic Compression Device OR Lovenox/Heparin/Coumadin) Score 3-4: High Risk (Intermittent/Pneumatic Compression Device AND Lovenox/Heparin/Coumadin) Score > or = 5: Highest Risk (Intermittent/Pneumatic Compression Device AND Lovenox/Heparin/Coumadin) Assessment/Plan Assessment A 69-year-old male with a past medical history of COPD, CORRINA and HTN was brought in by the EMS as the patient was found obtunded at his home. Patient is admitted for the evaluation management of acute hypoxemic/hypercapnic respiratory failure and altered mental status secondary to CO2 narcosis. Plan AMS Encephalopathy: Most likely a combination of CO2 narcosis caused by the use of gabapentin at 800 mg 3 times a day. Sedation with propofol and fentanyl paused to facilitate a spontaneous breathing trial. RASS goal: 0 to -1 Please see respiratory section for further plan Respiratory: Acute hypoxemic/hypercapnic respiratory failure Acute exacerbation of heart failure & Multifocal Aspiration pneumonia: Responded well to diuretic therapy. On ceftriaxone. Growing Gram-positive cocci in pairs and chains in blood. Unknown baseline respiratory status COPD, not in acute exacerbation Underlying sleep apnea, non compliant PE, ruled out Intubated, PRVC/500/22/5/55% with a pulse oximeter reading of 92%. Tidal volume reduced to 400 and respiratory rate to 12 prior to initiation of spontaneous breathing trial. DuoNeb q.4h p.r.n. On ceftriaxone Please see CVS section for heart failure management CVS: HFpEF, acute exacerbation Hypotension CAD status post stent placement ? Cor pulmonale History of previous DVT Hypovolemic shock EF: 60-65% We will consider optimization with GDM T On low-dose norepinephrine drip at 0.08 mcg/kg per minute Continue aspirin 81 mg once daily, Xarelto 20 mg once daily, atorvastatin 80 mg once daily D/C lasix Hematology: Microcytic anemia Low iron, TIBC Started on IV Ferrlecit 125 mg once daily Endocrine: Prediabetes: Hyperglycemia, A1c: 6.3 Hyper/hypoglycemic protocol GI: IV Protonix prophylaxis Code status: Full code Diet: NPO Anticoagulation: Aspirin, Xarelto Disposition: Continue care in CICU, adequate antibiotic coverage CC time 35minutes Malnutrition Alert Dietary Evaluation Expected Outcome/Goals Expected Outcomes/Goals: Tolerance to TF, wt maintenance, bowel regularity, skin integrity, BG 140-180 mg/dL Excisonal Debridement Excisonal Debridement MATTHIAS MEDINA MD Expected Outcome/Goals Expected Outcomes/Goals: Tolerance to TF, wt maintenance, bowel regularity, skin integrity, BG 140-180 mg/dL MATTHIAS MEDINA MD May 05, 2025 12:24
[2025-05-05] MEDS ORDERED: mag hydrox/Alum hydrox/simeth 30ml oral suspension PO PRN (13:08)
[2025-05-05] MEDS ORDERED: magnesium hydroxide 30ml (MOM) UD suspension PO PRN (13:08)
[2025-05-05] MEDS: INSULIN LISPRO 100 UNIT/ML INSULN.PEN MULTI-DOSE SQ SCH (13:36)
[2025-05-05] MEDS ORDERED: insulin regular, human U-100 10ml vial - multi-dose SQ SCH (14:00)
[2025-05-05 14:21] LABS: ABG BASE EXCESS 7.0 mmol/L (-2.0-3.0); ABG HCO3 32.3 mmol/L (21.0-28.0); ABG OXYGEN SATURATION 94.2 % (94.0-98.0); ABG PCO2 (T) 51.5 mmHg (35.0-48.0); ABG PH (T) 7.420 (7.350-7.450); ABG PO2 (T) 83.7 mmHg (83.0-108.0); ALLEN'S TEST POSITIVE; FCOHb 0.9 % (0.5-1.5); FHHb 5.7 % (0.0-5.0); FIO2 100.0 mmHg/%; FLOW 35 L/min; FMetHb 0.3 % (0.0-1.5); FO2Hb 93.1 % (94.0-98.0); MODE HIGH FLOW; PATIENT TEMPERATURE 37.9; TOTAL HEMOGLOBIN 11.9 G/dl (13.5-17.5)
[2025-05-05] MEDS: dexmedetomidin/NS 400mcg/100ml 100 ML IV SCH (14:43)
[2025-05-05] MEDS: POTASSIUM CHLORIDE 20 MEQ/15 ML oral solution PO SCH (18:04)
--- NOTE | 2025-05-05 19:01 | PROGRESS NOTE ---
Daily Progress Note Providers to CC ~ Antibiotic Timeout Antibiotic Ordered?: Yes Subjective The patient was extubated today is on high-flow oxygen and remains somewhat confused and is septic. Objective Vital Signs Date Time Temp Pulse Resp B/P (MAP) Pulse Ox O2 Delivery O2 Flow Rate FiO2 05/05/25 18:49 102/56 05/05/25 17:58 100.0 99 18 93 High Flow Nasal Cannula 35.0 100 Result Diagram: 05/05/2522605/05/25226 Gen. Mildly confused no acute distress on high-flow oxygen Lungs clear to ascultation bilaterally, no wheezes rales or rhonchi appreciated Heart normal sinus rhythm no murmurs rubs or clicks noted Abdomen soft nontender bowel sounds are normoactive Lower extremities no clubbing cyanosis, 2+ pitting edema appreciated bilaterally Problem\Assessment\Plan # CO2 narcosis with metabolic encephalopathy # acute hypoxic hypercapnic respiratory failure # acute exacerbation of chronic COPD # sepsis On DuoNeb q.4 hours IV cefepime Norepinephrine drip 05/03 cefepime was discontinued and the patient is started on IV Rocephin remains on a norepinephrine drip 05/03 remains septic on norepinephrine drip and intubated 05/05 extubated today on high-flow oxygen remains on a norepinephrine drip in his mildly confused # acute exacerbation of chronic HFpEF On IV Lasix metaxalone # microcytic anemia Monitor daily CBC Iron studies demonstrates a mixed anemia including anemia of chronic disease and iron-deficiency 05/05 stable # [id number]-qxwosbdvi diabetes mellitus And a hyper and hypoglycemic protocol # DVT prophylaxis On Xarelto Date of Service: May 05, 2025 Billing Provider: RAHEEM BAEZ DO Common Visit Codes: [id number] INP/OBS CARE(HIGH) RAHEEM BAEZ DO May 05, 2025 19:01
[2025-05-05] MEDS: rivaroxaban 15mg tablet PO SCH (19:50)
[2025-05-05] MEDS: docusate sodium 100mg/10ml UD cup PO SCH (19:50)
[2025-05-06] VITALS (34 sets, daily range): BP systolic 91–124; BP diastolic 53–75; PULSE 61–91; RESP 2–28; TEMP 97.1–98.9; O2SAT 91–99
[2025-05-06 06:06] LABS: MEAN PLATELET VOLUME 8.1 FL (7.4-10.4); RED CELL DISTRIBUTION WIDTH 19.2 % (11.5-14.5)
[2025-05-06 06:27] LABS: CREATININE 0.74 MG/DL (0.60-1.10); PHOSPHORUS 2.8 MG/DL (2.3-4.5); TOTAL CARBON DIOXIDE 31.2 MMOL/L (24-32); eCRCL 91 ML/MIN; eGFR > 90 ML/MIN
[2025-05-06 06:36] LABS: PLATELET ESTIMATE NORMAL
[2025-05-06 06:37] LABS: ELLIPTOCYTES FEW; LARGE PLATELETS FEW
[2025-05-06] MEDS: EMPAGLIFLOZIN 10 MG TABLET PO SCH (07:49)
--- NOTE | 2025-05-06 07:49 | RADIOLOGY REPORT ---
CHEST RADIOGRAPH Indication: HYPOXIA Technique: Single frontal view of the chest was obtained Comparison: DI CHEST,SINGLE VIEW on DOS: 05/05/25 FINDINGS: Lines and Tubes: Interval removal of the support lines and tubes. Lungs: Bilateral interstitial and airspace disease similar to prior study. Pleura: Small bilateral pleural effusions. No pneumothorax. Cardiomediastinal contours: Stable. Bones: No acute osseous abnormality. IMPRESSION: 1. Interstitial and airspace disease which may reflect pulmonary edema or pneumonia. Appearance is s imilar to prior radiograph from 05/05/2025. 2. Small bilateral pleural effusions. 3. Removal of the support lines and tubes.
--- NOTE | 2025-05-06 10:11 | PROGRESS NOTE ---
Daily Progress Note Providers to CC ~ Antibiotic Timeout Antibiotic Ordered?: Yes Subjective CHIEF COMPLAINT NAUSEA REVIEW OF SYSTEMS NEGATIVE FOR ALL 10 SYSTEMS REVIEWED Objective Vital Signs Date Time Temp Pulse Resp B/P (MAP) Pulse Ox O2 Delivery O2 Flow Rate FiO2 05/06/25 09:00 100.0 65 23 91/58 (69) 96 High Flow Nasal Cannula 30.0 95 Result Diagram: 05/06/2542605/06/25426 PATIENT IS ALERT AND ORIENTED X3 NO ACUTE DISTRESS LYING DOWN COMFORTABLY SPEAKING IN FULL SENTENCES HEENT NORMOCEPHALIC NONTRAUMATIC HEAD CVS FIRST AND SECOND HEART SOUNDS ARE REGULAR RATE RHYTHM NO MURMURS GALLOPS OR RUBS RESPIRATORY SYSTEM IS CLEAR TO AUSCULTATE BILATERALLY THERE ARE NO RALES RHONCHI CRACKLES OR WHEEZING ABDOMEN IS SOFT OBESE BOWEL SOUNDS ARE POSITIVE NONTENDER NONDISTENDED EXTREMITIES NO CLUBBING CYANOSIS OR EDEMA Problem\Assessment\Plan # CO2 narcosis with metabolic encephalopathy # acute hypoxic hypercapnic respiratory failure PATIENT IS SUCCESSFULLY EXTUBATED ON 05/05/2025 REMAINS ON HIGH-FLOW OXYGEN # acute exacerbation of chronic COPD # sepsis # acute exacerbation of chronic HFpEF On IV Lasix metaxalone # microcytic anemia STABLE MONITOR H&H TRANSFUSE P.R.N. Iron studies demonstrates a mixed anemia including anemia of chronic disease and iron-deficiency # ryf-sloepce-xtayowyni diabetes mellitus And a hyper and hypoglycemic protocol BLOOD SUGARS ARE RANGING FROM 132-171 CONTINUE INSULIN SLIDING SCALE # DVT prophylaxis On Xarelto PATIENT IS BEING MANAGED IN THE ICU BY CORRECTIONS SERGEANT Date of Service: May 06, 2025 Billing Provider: DANIEL HERNADEZ MD Common Visit Codes: [id number] INP/OBS CARE(HIGH) DANIEL EHRNADEZ MD May 06, 2025 10:11
--- NOTE | 2025-05-06 16:15 | PROGRESS NOTE ---
Subjective Subjective Patient was extubated yesterday and doing well on nasal cannula oxygen but requiring 95% of FiO2. He is on Precedex. Reason for visit: Pulmonary critical care follow-up Reviewed: Care Plan, H&P, Labs, Medications, Radiology Review of Systems Changes from previous H/P or p: No Changes Daily Progress Note Exam Vitals Vital Signs Date Time Temp Pulse Resp B/P (MAP) Pulse Ox O2 Delivery O2 Flow Rate FiO2 05/06/25 15:32 77 20 High Flow Nasal Cannula 30.0 94 05/06/25 15:28 95 05/06/25 15:00 99.1 05/06/25 15:00 106/60 (75) Result Diagram: 05/06/2542605/06/25426 Exam General: Morbidly obese male, intubated and sedated HEENT: PERRLA, no icterus, pallor, lymphadenopathy, carotid bruit Respiratory system: Decreased bilateral breath sounds in the lower regions CVS: S1-S2 heard, no murmurs/rubs/gallop GI: Soft, nontender, no organomegaly, no guarding/rigidity, bowel sounds present Neuro: Could not be examined as the patient is sedated Extremities: 2+ pedal edema present in bilateral feet Skin: A 5 x 6 cm irregular shaped blister with peeling of skin, Warm and dry VTE VTE Risk Score VTE Risk Score Reference Ranges: Score 0-1 = Low Risk (Aggressive mobilization; early ambulation; no VTE prophylaxis required) Score 2: Moderate Risk (Intermittent/Pneumatic Compression Device OR Lovenox/Heparin/Coumadin) Score 3-4: High Risk (Intermittent/Pneumatic Compression Device AND Lovenox/Heparin/Coumadin) Score > or = 5: Highest Risk (Intermittent/Pneumatic Compression Device AND Lovenox/Heparin/Coumadin) Assessment/Plan Assessment A 69-year-old male with a past medical history of COPD, CORRINA and HTN was brought in by the EMS as the patient was found obtunded at his home. Patient is admitted for the evaluation management of acute hypoxemic/hypercapnic respiratory failure and altered mental status secondary to CO2 narcosis. Plan AMS Encephalopathy: Most likely a combination of CO2 narcosis caused by the use of gabapentin at 800 mg 3 times a day. Sedation with propofol and fentanyl discontinued after extubation. Start quetiapine 100 mg p.o. q.h.s.. RASS goal: 0 to -1 Please see respiratory section for further plan Respiratory: Acute hypoxemic/hypercapnic respiratory failure: Extubated on 05/05/2025 Acute exacerbation of heart failure & Multifocal Aspiration pneumonia: Responded well to diuretic therapy. On ceftriaxone. Growing Streptococcus vestibularis and chains in blood. Unknown baseline respiratory status COPD, not in acute exacerbation Underlying sleep apnea, non compliant PE, ruled out On 95% high-flow oxygen with a pulse oximetry reading of 94%. DuoNeb q.4h p.r.n. On ceftriaxone Please see CVS section for heart failure management CVS: HFpEF, acute exacerbation Hypotension CAD status post stent placement ? Cor pulmonale History of previous DVT Hypovolemic shock EF: 60-65% We will consider optimization with GDM T Off norepinephrine Continue aspirin 81 mg once daily, Xarelto 20 mg once daily, atorvastatin 80 mg once daily D/C lasix Hematology: Microcytic anemia Low iron, TIBC Started on IV Ferrlecit 125 mg once daily Endocrine: Prediabetes: Hyperglycemia, A1c: 6.3 Hyper/hypoglycemic protocol GI: IV Protonix prophylaxis Code status: Full code Diet: NPO Anticoagulation: Aspirin, Xarelto Disposition: Continue care in CICU, adequate antibiotic coverage CC time 35minutes Malnutrition Alert Dietary Evaluation Expected Outcome/Goals Expected Outcomes/Goals: Tolerance to TF, wt maintenance, bowel regularity, skin integrity, BG 140-180 mg/dL Excisonal Debridement Excisonal Debridement MATTHIAS MEDINA MD Expected Outcome/Goals Expected Outcomes/Goals: stable wt, meet at least 75% of estimated nutrient needs with diet advancement, bowel regularity, skin integrity, BG 140-180 mg/dL MATTHIAS MEDINA MD May 06, 2025 16:15
[2025-05-06] MEDS: docusate sod 100mg capsule PO SCH (19:58)
[2025-05-06] MEDS: acetaminophen 325mg/10.15ml oral unit dose solution PO PRN (23:19)
[2025-05-07] VITALS (25 sets, daily range): BP systolic 101–120; BP diastolic 55–68; PULSE 80–101; RESP 13–24; TEMP 97.3–98.4; O2SAT 94–99
[2025-05-07 06:09] LABS: MEAN PLATELET VOLUME 7.9 FL (7.4-10.4); RED CELL DISTRIBUTION WIDTH 19.3 % (11.5-14.5)
[2025-05-07 06:30] LABS: CREATININE 0.81 MG/DL (0.60-1.10); TOTAL CARBON DIOXIDE 29.6 MMOL/L (24-32); eCRCL 83 ML/MIN; eGFR > 90 ML/MIN
[2025-05-07] MEDS: lactose-reduced food (Ensure Enlive) - 237ml bottle PO SCH (13:04)
--- NOTE | 2025-05-07 14:07 | PROGRESS NOTE ---
Daily Progress Note Providers to CC ~ Antibiotic Timeout Antibiotic Ordered?: Yes Subjective Chief complaint none Objective Vital Signs Date Time Temp Pulse Resp B/P (MAP) Pulse Ox O2 Delivery O2 Flow Rate FiO2 05/07/25 11:08 80 20 High Flow Nasal Cannula 30.0 70 05/07/25 11:03 97 05/07/25 06:00 98.0 110/65 (80) Result Diagram: 05/07/25 0542 05/07/25 0542 PATIENT IS ALERT AND ORIENTED X3 NO ACUTE DISTRESS LYING DOWN COMFORTABLY SPEAKING IN FULL SENTENCES HEENT NORMOCEPHALIC NONTRAUMATIC HEAD CVS FIRST AND SECOND HEART SOUNDS ARE REGULAR RATE RHYTHM NO MURMURS GALLOPS OR RUBS RESPIRATORY SYSTEM IS CLEAR TO AUSCULTATE BILATERALLY THERE ARE NO RALES RHONCHI CRACKLES OR WHEEZING ABDOMEN IS SOFT OBESE BOWEL SOUNDS ARE POSITIVE NONTENDER NONDISTENDED EXTREMITIES NO CLUBBING CYANOSIS OR EDEMA Problem\Assessment\Plan # CO2 narcosis with metabolic encephalopathy # acute hypoxic hypercapnic respiratory failure PATIENT IS SUCCESSFULLY EXTUBATED ON 05/05/2025 REMAINS ON HIGH-FLOW OXYGEN # acute exacerbation of chronic COPD # sepsis # acute exacerbation of chronic HFpEF On IV Lasix metaxalone # microcytic anemia STABLE MONITOR H&H TRANSFUSE P.R.N. Iron studies demonstrates a mixed anemia including anemia of chronic disease and iron-deficiency # fhm-etacqsl-htpjkbese diabetes mellitus And a hyper and hypoglycemic protocol BLOOD SUGARS ARE RANGING FROM 132-171 CONTINUE INSULIN SLIDING SCALE # DVT prophylaxis On Xarelto Pending placement to rehab-discussed with supply planner Date of Service: May 07, 2025 Billing Provider: DANIEL HERNADEZ MD Common Visit Codes: [id number] INP/OBS CARE(HIGH) DANIEL HERNADEZ MD May 07, 2025 14:07
[2025-05-07] MEDS: HYDROcodone/acetaminophen 10/325mg tab PO PRN (23:49)
[2025-05-08] VITALS (24 sets, daily range): BP systolic 110–138; BP diastolic 52–71; PULSE 62–105; RESP 17–29; TEMP 97.2–98.6; O2SAT 92–97
[2025-05-08 07:00] LABS: MEAN PLATELET VOLUME 8.5 FL (7.4-10.4); RED CELL DISTRIBUTION WIDTH 19.0 % (11.5-14.5)
[2025-05-08 07:32] LABS: CREATININE 0.75 MG/DL (0.60-1.10); TOTAL CARBON DIOXIDE 31.4 MMOL/L (24-32); eCRCL 90 ML/MIN; eGFR > 90 ML/MIN
--- NOTE | 2025-05-08 15:01 | PROGRESS NOTE ---
Daily Progress Note Providers to CC ~ Antibiotic Timeout Antibiotic Ordered?: Yes Subjective Chief complaint none Review of systems negative for all 10 systems reviewed Objective Vital Signs Date Time Temp Pulse Resp B/P (MAP) Pulse Ox O2 Delivery O2 Flow Rate FiO2 05/08/25 11:42 86 22 High Flow Nasal Cannula 40.0 55 05/08/25 11:37 95 05/08/25 11:00 97.3 138/68 (91) Result Diagram: 05/08/25 0555 05/08/25 05 PATIENT IS ALERT AND ORIENTED X3 NO ACUTE DISTRESS LYING DOWN COMFORTABLY SPEAKING IN FULL SENTENCES HEENT NORMOCEPHALIC NONTRAUMATIC HEAD CVS FIRST AND SECOND HEART SOUNDS ARE REGULAR RATE RHYTHM NO MURMURS GALLOPS OR RUBS RESPIRATORY SYSTEM IS CLEAR TO AUSCULTATE BILATERALLY THERE ARE NO RALES RHONCHI CRACKLES OR WHEEZING ABDOMEN IS SOFT OBESE BOWEL SOUNDS ARE POSITIVE NONTENDER NONDISTENDED EXTREMITIES NO CLUBBING CYANOSIS OR EDEMA Problem\Assessment\Plan # CO2 narcosis with metabolic encephalopathy # acute hypoxic hypercapnic respiratory failure PATIENT IS SUCCESSFULLY EXTUBATED ON 05/05/2025 REMAINS ON HIGH-FLOW OXYGEN # acute exacerbation of chronic COPD # sepsis # acute exacerbation of chronic HFpEF On IV Lasix metaxalone # microcytic anemia STABLE MONITOR H&H TRANSFUSE P.R.N. Iron studies demonstrates a mixed anemia including anemia of chronic disease and iron-deficiency # [id number]-kjprhqexq diabetes mellitus And a hyper and hypoglycemic protocol BLOOD SUGARS ARE RANGING FROM 132-171 CONTINUE INSULIN SLIDING SCALE # DVT prophylaxis On Xarelto Pending placement to rehab-discussed with operations planner Date of Service: May 08, 2025 Billing Provider: DANIEL HERNADEZ MD Common Visit Codes: [id number] INP/OBS CARE(HIGH) DANIEL HERNADEZ MD May 08, 2025 15:01
[2025-05-08] MEDS: JUVEN Smoothie Arginine/Glut./Ca2+Bmb (Juven 19.3pkt) 240ml cup PO SCH (18:05)
[2025-05-09] VITALS (21 sets, daily range): BP systolic 117–144; BP diastolic 65–76; PULSE 91–105; RESP 14–29; TEMP 97.2–98.9; O2SAT 90–95
[2025-05-09 08:07] LABS: MEAN PLATELET VOLUME 8.3 FL (7.4-10.4); RED CELL DISTRIBUTION WIDTH 19.2 % (11.5-14.5)
[2025-05-09 08:40] LABS: CREATININE 0.72 MG/DL (0.60-1.10); TOTAL CARBON DIOXIDE 27.8 MMOL/L (24-32); eCRCL 94 ML/MIN; eGFR > 90 ML/MIN
--- NOTE | 2025-05-09 13:48 | PROGRESS NOTE ---
Daily Progress Note Providers to CC ~ Antibiotic Timeout Antibiotic Ordered?: Yes Subjective Chief complaint patient says he is feeling so much better he has been working with physical therapy his mood is Up lifted today Review of systems negative for all 10 systems reviewed Objective Vital Signs Date Time Temp Pulse Resp B/P (MAP) Pulse Ox O2 Delivery O2 Flow Rate FiO2 05/09/25 11:14 103 22 High Flow Nasal Cannula 40.0 55 05/09/25 11:11 94 05/09/25 06:00 97.6 129/73 (91) Result Diagram: 05/09/25 0701 05/09/25 0701 PATIENT IS ALERT AND ORIENTED X3 NO ACUTE DISTRESS LYING DOWN COMFORTABLY SPEAKING IN FULL SENTENCES HEENT NORMOCEPHALIC NONTRAUMATIC HEAD CVS FIRST AND SECOND HEART SOUNDS ARE REGULAR RATE RHYTHM NO MURMURS GALLOPS OR RUBS RESPIRATORY SYSTEM IS CLEAR TO AUSCULTATE BILATERALLY THERE ARE NO RALES RHONCHI CRACKLES OR WHEEZING ABDOMEN IS SOFT OBESE BOWEL SOUNDS ARE POSITIVE NONTENDER NONDISTENDED EXTREMITIES NO CLUBBING CYANOSIS OR EDEMA Problem\Assessment\Plan # CO2 narcosis with metabolic encephalopathy # acute hypoxic hypercapnic respiratory failure PATIENT IS SUCCESSFULLY EXTUBATED ON 05/05/2025 REMAINS ON HIGH-FLOW OXYGEN # acute exacerbation of chronic COPD # sepsis # acute exacerbation of chronic HFpEF On IV Lasix metaxalone # microcytic anemia STABLE MONITOR H&H TRANSFUSE P.R.N. Iron studies demonstrates a mixed anemia including anemia of chronic disease and iron-deficiency # rqz-uocuxsh-ocxpxlnyu diabetes mellitus And a hyper and hypoglycemic protocol BLOOD SUGARS ARE RANGING FROM 132-171 CONTINUE INSULIN SLIDING SCALE # DVT prophylaxis On Xarelto Pending placement to rehab-discussed with master planner Date of Service: May 09, 2025 Billing Provider: DANIEL HERNADEZ MD Common Visit Codes: [id number] INP/OBS CARE(HIGH) DANIEL HERNADEZ MD May 09, 2025 13:48
[2025-05-09] MEDS: NUT.TX.IMPAIRED DIGEST FXN (Ensure Clear) 237 ML PO SCH (18:00)
[2025-05-10] VITALS (29 sets, daily range): BP systolic 110–152; BP diastolic 59–69; PULSE 75–114; RESP 15–24; TEMP 97.2–98.1; O2SAT 90–99
[2025-05-10 07:11] LABS: MEAN PLATELET VOLUME 8.2 FL (7.4-10.4); RED CELL DISTRIBUTION WIDTH 19.6 % (11.5-14.5)
[2025-05-10 07:34] LABS: PLATELET ESTIMATE NORMAL
--- NOTE | 2025-05-10 13:56 | PROGRESS NOTE ---
Daily Progress Note Providers to CC ~ Antibiotic Timeout Antibiotic Ordered?: Yes Subjective Chief complaint none patient is sleeping comfortably easily arousable continues to be on high-flow oxygen Objective Vital Signs Date Time Temp Pulse Resp B/P (MAP) Pulse Ox O2 Delivery O2 Flow Rate FiO2 05/10/25 11:41 96 22 High Flow Nasal Cannula 40.0 45 05/10/25 11:35 92 05/10/25 11:00 97.4 118/69 (85) Result Diagram: 05/10/25 0622 05/09/25 0701 PATIENT IS ALERT AND ORIENTED X3 NO ACUTE DISTRESS LYING DOWN COMFORTABLY HEENT NORMOCEPHALIC NONTRAUMATIC HEAD CVS FIRST AND SECOND HEART SOUNDS ARE REGULAR RATE RHYTHM NO MURMURS GALLOPS OR RUBS RESPIRATORY SYSTEM IS CLEAR TO AUSCULTATE BILATERALLY THERE ARE NO RALES RHONCHI CRACKLES OR WHEEZING ABDOMEN IS SOFT OBESE BOWEL SOUNDS ARE POSITIVE NONTENDER NONDISTENDED EXTREMITIES NO CLUBBING CYANOSIS OR EDEMA Problem\Assessment\Plan # CO2 narcosis with metabolic encephalopathy improving slowly # acute hypoxic hypercapnic respiratory failure PATIENT IS SUCCESSFULLY EXTUBATED ON 05/05/2025 REMAINS ON HIGH-FLOW OXYGEN # acute exacerbation of chronic COPD # sepsis # acute exacerbation of chronic HFpEF On IV Lasix metaxalone # microcytic anemia STABLE MONITOR H&H TRANSFUSE P.R.N. Iron studies demonstrates a mixed anemia including anemia of chronic disease and iron-deficiency # vqk-ondlyyl-szldzauih diabetes mellitus And a hyper and hypoglycemic protocol BLOOD SUGARS ARE RANGING FROM 132-171 CONTINUE INSULIN SLIDING SCALE # DVT prophylaxis On Xarelto Pending placement to rehab-discussed with case planner Date of Service: May 10, 2025 Billing Provider: DANIEL HERNADEZ MD Common Visit Codes: [id number] INP/OBS CARE(HIGH) DANIEL HERNADEZ MD May 10, 2025 13:56
[2025-05-10 20:42] LABS: CREATININE 0.69 MG/DL (0.60-1.10); TOTAL CARBON DIOXIDE 27.6 MMOL/L (24-32); eCRCL 98 ML/MIN; eGFR > 90 ML/MIN
[2025-05-11] VITALS (25 sets, daily range): BP systolic 108–132; BP diastolic 43–73; PULSE 80–95; RESP 15–25; TEMP 97–98; O2SAT 92–98
[2025-05-11 07:20] LABS: MEAN PLATELET VOLUME 8.4 FL (7.4-10.4); RED CELL DISTRIBUTION WIDTH 20.0 % (11.5-14.5)
[2025-05-11 07:31] LABS: CREATININE 0.70 MG/DL (0.60-1.10); TOTAL CARBON DIOXIDE 28.8 MMOL/L (24-32); eCRCL 96 ML/MIN; eGFR > 90 ML/MIN
--- NOTE | 2025-05-11 11:23 | PROGRESS NOTE ---
Daily Progress Note Providers to CC ~ Antibiotic Timeout Antibiotic Ordered?: Yes Subjective cc- NEW CHIEF COMPLAINT PATIENT STATES OVERALL I FEEL BETTER We are working to change my insurance so I can go to a prison facility Review of systems is negative for all 10 systems reviewed Objective Vital Signs Date Time Temp Pulse Resp B/P (MAP) Pulse Ox O2 Delivery O2 Flow Rate FiO2 05/11/25 08:43 84 25 High Flow Nasal Cannula 40.0 45 05/11/25 08:41 95 05/11/25 07:14 97.9 115/68 (84) Result Diagram: 05/11/25 0614 05/11/25 0614 PATIENT IS ALERT AND ORIENTED X3 NO ACUTE DISTRESS LYING DOWN COMFORTABLY HEENT NORMOCEPHALIC NONTRAUMATIC HEAD CVS FIRST AND SECOND HEART SOUNDS ARE REGULAR RATE RHYTHM NO MURMURS GALLOPS OR RUBS RESPIRATORY SYSTEM IS CLEAR TO AUSCULTATE BILATERALLY THERE ARE NO RALES RHONCHI CRACKLES OR WHEEZING ABDOMEN IS SOFT OBESE BOWEL SOUNDS ARE POSITIVE NONTENDER NONDISTENDED EXTREMITIES NO CLUBBING CYANOSIS OR EDEMA Bilateral lower extremities are hyperpigmented from the infrapatellar to ankles Problem\Assessment\Plan # CO2 narcosis with metabolic encephalopathy improving slowly # acute hypoxic hypercapnic respiratory failure PATIENT IS SUCCESSFULLY EXTUBATED ON 05/05/2025 REMAINS ON HIGH-FLOW OXYGEN # acute exacerbation of chronic COPD # sepsis continue antibiotics # acute exacerbation of chronic HFpEF On IV Lasix metaxalone # microcytic anemia H&H is stable STABLE MONITOR H&H TRANSFUSE P.R.N. Iron studies demonstrates a mixed anemia including anemia of chronic disease and iron-deficiency # chv-puaqbfp-babtxgewn diabetes mellitus And a hyper and hypoglycemic protocol BLOOD SUGARS ARE RANGING FROM 132-171 CONTINUE INSULIN SLIDING SCALE # DVT prophylaxis On Xarelto Pending placement to rehab-discussed with program planner Date of Service: May 11, 2025 Billing Provider: DANIEL HERNADEZ MD Common Visit Codes: [id number] INP/OBS CARE(HIGH) DANIEL HERNADEZ MD May 11, 2025 11:23
[2025-05-12] VITALS (28 sets, daily range): BP systolic 105–110; BP diastolic 37–69; PULSE 60–104; RESP 12–30; TEMP 97.1–98.1; O2SAT 88–99
[2025-05-12] MEDS: HYDROcodone/acetaminophen 5mg/325mg tablet PO PRN (06:07)
[2025-05-12 06:23] LABS: MEAN PLATELET VOLUME 8.2 FL (7.4-10.4); RED CELL DISTRIBUTION WIDTH 19.8 % (11.5-14.5)
[2025-05-12 06:59] LABS: CREATININE 0.63 MG/DL (0.60-1.10); TOTAL CARBON DIOXIDE 28.1 MMOL/L (24-32); eCRCL 107 ML/MIN; eGFR > 90 ML/MIN
[2025-05-12 08:19] LABS: PLATELET ESTIMATE NORMAL
[2025-05-12] MEDS: pantoprazole 40mg Tablet.DR PO SCH (08:30)
--- NOTE | 2025-05-12 09:43 | PROGRESS NOTE ---
Daily Progress Note Providers to CC ~ Antibiotic Timeout Antibiotic Ordered?: Yes Subjective Chief complaint none says the physical therapist really tires me out but on trying very hard to continue to work with them Review of systems negative for all 10 systems reviewed Objective Vital Signs Date Time Temp Pulse Resp B/P (MAP) Pulse Ox O2 Delivery O2 Flow Rate FiO2 05/12/25 07:50 85 20 High Flow Nasal Cannula 25.0 40 05/12/25 07:45 94 05/12/25 06:00 97.1 109/61 (77) Result Diagram: 05/12/25 0554 05/12/25 0554 PATIENT IS ALERT AND ORIENTED X3 NO ACUTE DISTRESS LYING DOWN COMFORTABLY HEENT NORMOCEPHALIC NONTRAUMATIC HEAD CVS FIRST AND SECOND HEART SOUNDS ARE REGULAR RATE RHYTHM NO MURMURS GALLOPS OR RUBS RESPIRATORY SYSTEM IS CLEAR TO AUSCULTATE BILATERALLY THERE ARE NO RALES RHONCHI CRACKLES OR WHEEZING ABDOMEN IS SOFT OBESE BOWEL SOUNDS ARE POSITIVE NONTENDER NONDISTENDED EXTREMITIES NO CLUBBING CYANOSIS OR EDEMA Bilateral lower extremities are hyperpigmented from the infrapatellar to ankles Problem\Assessment\Plan # CO2 narcosis with metabolic encephalopathy improving slowly # acute hypoxic hypercapnic respiratory failure PATIENT IS SUCCESSFULLY EXTUBATED ON 05/05/2025 REMAINS ON HIGH-FLOW OXYGEN # acute exacerbation of chronic COPD # sepsis resolved # acute exacerbation of chronic HFpEF On IV Lasix metaxalone # microcytic anemia H&H is stable STABLE MONITOR H&H TRANSFUSE P.R.N. Iron studies demonstrates a mixed anemia including anemia of chronic disease and iron-deficiency # sty-esbzvho-vdojvyhfk diabetes mellitus And a hyper and hypoglycemic protocol BLOOD SUGARS ARE RANGING FROM 132-171 CONTINUE INSULIN SLIDING SCALE # DVT prophylaxis On Xarelto pending discharge to halfway facility after patient is insurance is switched over Date of Service: May 12, 2025 Billing Provider: DANIEL HERNADEZ MD Common Visit Codes: [id number] INP/OBS CARE(MOD) DANIEL HERNADEZ MD May 12, 2025 09:43
[2025-05-13] VITALS (24 sets, daily range): BP systolic 101–123; BP diastolic 55–72; PULSE 71–93; RESP 12–24; TEMP 96.8–98; O2SAT 90–94
[2025-05-13 09:00] LABS: MEAN PLATELET VOLUME 8.2 FL (7.4-10.4); RED CELL DISTRIBUTION WIDTH 19.9 % (11.5-14.5)
[2025-05-13 09:29] LABS: TOTAL CARBON DIOXIDE 29.8 MMOL/L (24-32)
[2025-05-13 09:35] LABS: CREATININE 0.51 MG/DL (0.60-1.10); eCRCL 132 ML/MIN; eGFR > 90 ML/MIN
[2025-05-13] MEDS ORDERED: magnesium Cl slow-release 64mg tablet PO PRN (10:50)
[2025-05-13] MEDS ORDERED: potassium Cl 20 mEq SR tablet PO PRN (10:50)
[2025-05-13] MEDS: potassium Cl 20 mEq SR tablet PO PRN (10:59)
--- NOTE | 2025-05-13 14:25 | PROGRESS NOTE ---
Daily Progress Note Providers to CC ~ Antibiotic Timeout Antibiotic Ordered?: Yes Subjective Patient has no new complaints. Seen resting comfortably. Objective Vital Signs Date Time Temp Pulse Resp B/P (MAP) Pulse Ox O2 Delivery O2 Flow Rate FiO2 05/13/25 11:48 81 20 High Flow Nasal Cannula 30.0 40 05/13/25 11:44 91 05/13/25 11:00 97.3 101/55 (70) Result Diagram: 05/13/25 0828 05/13/25 0828 Awake cooperative in no acute distress HEENT normocephalic atraumatic extraocular movements are intact Neck supple, no JVD Chest: Clear to auscultation, no wheezes crackles or rhonchi Heart: Regular rate rhythm, no murmur or gallop rub Abdomen is soft nontender no organomegaly Extremities no cyanosis clubbing or edema Neuro exam nonfocal Skin: Hyperpigmentation of both bilateral lower extremities is noted Other Results Medications reviewed Problem\Assessment\Plan # CO2 narcosis with metabolic encephalopathy : Resolved. Patient is awake alert oriented # acute hypoxic hypercapnic respiratory failure: Patient was intubated and subsequently successfully extubated on 05/05/2025. Patient remains on high-flow oxygen. # acute exacerbation of chronic COPD: Continue inhaled bronchodilators PRN # sepsis resolved # acute exacerbation of chronic HFpEF: Continue IV metolazone. # microcytic anemia H&H is stable Iron studies demonstrates a mixed anemia including anemia of chronic disease and iron-deficiency # bir-boexiwb-ilpcmzqhi diabetes mellitus: Carb controlled diet and a hyper and hypoglycemic protocol # DVT prophylaxis : On Xarelto Patient is awaiting placement Date of Service: May 13, 2025 Billing Provider: DK GUILLERMO MD Common Visit Codes: [id number] INP/OBS CARE(MOD) DK GUILLERMO MD May 13, 2025 14:25
[2025-05-14] VITALS (20 sets, daily range): BP systolic 105–113; BP diastolic 60–71; PULSE 75–102; RESP 15–22; TEMP 96.7–98.1; O2SAT 89–96
[2025-05-14 06:36] LABS: MEAN PLATELET VOLUME 7.6 FL (7.4-10.4); RED CELL DISTRIBUTION WIDTH 19.5 % (11.5-14.5)
[2025-05-14 07:03] LABS: CREATININE 0.69 MG/DL (0.60-1.10); TOTAL CARBON DIOXIDE 32.8 MMOL/L (24-32); eCRCL 98 ML/MIN; eGFR > 90 ML/MIN
--- NOTE | 2025-05-14 12:21 | DISCHARGE SUMMARY ---
Discharge Summary Providers to CC ~ Discharge Summary Admission Diagnosis: Acute Hypercapnec resp failure Hospital Course DATE OF ADMISSION: 05/01/2025 DATE OF DISCHARGE:05/14/2025 Discharge Diagnosis\Comment: Metabolic encephalopathy CO2 narcosis Acute hypoxemic hypercapnic respiratory. , wiring endotracheal intubation Acute on chronic obstructive pulmonary disease Sepsis acute exacerbation of chronic HFpEF Operations\Procedures: Endotracheal intubation and mechanical ventilation Consultants: Soil Sort Worker Complications: None Condition on DC: Stable Discharge Summary: Reason for admission: 69 years old male with a history of COPD and CHF was found obtunded at his house. Patient's. Even tried to contact him, requested for a welfare check by the police as patient did not respond. 911 was called who broke into the patient's house and found him obtunded on the floor. Please refer to admission H&P for more details Hospital course: Patient was admitted on the monitored floor under hospital course as follows. 1. Metabolic encephalopathy due to CO2 narcosis: Resolved. 2. Acute respiratory failure: Patient required mechanical ventilation and intubation however was successfully extubated. Remains on high-flow oxygen 3. COPD with exacerbation: Treated with inhaled bronchodilators and IV steroids 4.Acute exacerbation of chronic HFpEF: Patient has been on 80 mg of Lasix p.o. daily as outpatient. Decreased to 40 mg p.o. edema. Diuretic dose we will need to be adjusted based on his labs. Continued on Entresto 5. History of CAD: Patient has had stent placement. Asymptomatic at the time of discharge continued on aspirin. 6. BPH: Continued on Flomax 7. Hyperlipidemia: Continued on atorvastatin 8. GERD: Continued on omeprazole 9. Probable obstructive sleep apnea: Patient may need trilogy upon discharge and will need further evaluation and follow up with a media relations coordinator as outpatient 10. Diabetes mellitus type 2: Patient has been on metformin as outpatient. Now on subcu insulin. Discharge exam: Examined the patient on the day of discharge. Awake cooperative in no acute distress HEENT normocephalic atraumatic extraocular movements are intact Neck supple, no JVD Chest: Clear to auscultation, no wheezes crackles or rhonchi Heart: Regular rate rhythm, no murmur or gallop rub Abdomen is soft nontender no organomegaly Extremities no cyanosis clubbing or edema Neuro exam nonfocal Skin: Hyperpigmentation of both bilateral lower extremities is noted Disposition: LTAC *Problems/Diagnosis: (1) COPD exacerbation (2) (HFpEF) heart failure with preserved ejection fraction (3) Acute on chronic hypoxic respiratory failure Total Time Spent on D/C: > 30 Minutes Date of Service: May 14, 2025 Billing Provider: DK GUILLERMO MD Common Visit Codes: [id number] DISCH DAY >30min DK GUILLERMO MD May 14, 2025 12:20
[2025-05-14] MEDS: JUVEN Shake w/Arg/Glut/Ca2+Bmb (Juven 19.3gm) pkt 240ml PO SCH (13:11)
== END 2025-05-14 18:05 | DRG 871 ==
LOC: ER 07:23 → ED HOLD 11:02 → CICU 2S 16:34 → PCU 3S 05-06 17:01
PROVIDERS: ADMIT Internal Medicine Critical Care Medicine; ATTEND Internal Medicine Critical Care Medicine
PROC: 5A1945Z Respiratory Ventilation, 24-96 Consecutive Hours (ICD-10-PCS; principal; 2025-05-01)
PROC: B32T1ZZ Computerized Tomography (CT Scan) of Left Pulmonary Artery using Low Osmolar Contrast (ICD-10-PCS; 2025-05-01)
PROC: B32G1ZZ Computerized Tomography (CT Scan) of Bilateral Vertebral Arteries using Low Osmolar Contrast (ICD-10-PCS; 2025-05-01)
PROC: B3201ZZ Computerized Tomography (CT Scan) of Thoracic Aorta using Low Osmolar Contrast (ICD-10-PCS; 2025-05-01)
PROC: B32S1ZZ Computerized Tomography (CT Scan) of Right Pulmonary Artery using Low Osmolar Contrast (ICD-10-PCS; 2025-05-01)
PROC: 0BH17EZ Insertion of Endotracheal Airway into Trachea, Via Natural or Artificial Opening (ICD-10-PCS; 2025-05-01)
PROC: 05HM33Z Insertion of Infusion Device into Right Internal Jugular Vein, Percutaneous Approach (ICD-10-PCS; 2025-05-01)
PROC: B543ZZA Ultrasonography of Right Jugular Veins, Guidance (ICD-10-PCS; 2025-05-01)
PROC: 5A0955A Assistance with Respiratory Ventilation, Greater than 96 Consecutive Hours, High Flow/Velocity Cannula (ICD-10-PCS; 2025-05-05)
DX: A41.89 Other specified sepsis (principal); G93.41 Metabolic encephalopathy; I50.33 Acute on chronic diastolic (congestive) heart failure; J96.01 Acute respiratory failure with hypoxia; J96.02 Acute respiratory failure with hypercapnia; J69.0 Pneumonitis due to inhalation of food and vomit; R57.1 Hypovolemic shock; J44.1 Chronic obstructive pulmonary disease with (acute) exacerbation; J44.0 Chronic obstructive pulmonary disease with (acute) lower respiratory infection; E87.29 Other acidosis; B96.89 Other specified bacterial agents as the cause of diseases classified elsewhere; J44.9 Chronic obstructive pulmonary disease, unspecified; E78.5 Hyperlipidemia, unspecified; I11.0 Hypertensive heart disease with heart failure; I25.10 Atherosclerotic heart disease of native coronary artery without angina pectoris; K21.9 Gastro-esophageal reflux disease without esophagitis; N40.0 Benign prostatic hyperplasia without lower urinary tract symptoms; G47.33 Obstructive sleep apnea (adult) (pediatric); D50.9 Iron deficiency anemia, unspecified; E11.65 Type 2 diabetes mellitus with hyperglycemia; D63.8 Anemia in other chronic diseases classified elsewhere; Z79.899 Other long term (current) drug therapy; Z78.1 Physical restraint status; Z95.5 Presence of coronary angioplasty implant and graft; Z87.891 Personal history of nicotine dependence; Z91.199 Patient's noncompliance with other medical treatment and regimen due to unspecified reason; Z86.718 Personal history of other venous thrombosis and embolism
CPT/HCPCS: 31500; 36415; 36573; 36600; 70450; 71045; 71275; 74176; 80048; 80053; 80305; 81001; 82550; 82803; 82948; 83036; 83540; 83550; 83605; 83735; 83880; 84100; 84132; 84134; 84145; 84478; 84484; 85008; 85018; 85025; 87040; 87070; 87077; 87081; 87186; 93005; 93306; 94002; 94003; 94640; 94760; 94799; 96365; 97110; 97116; 97161; 97530; 99291; A4333; A5200; A6154; A6212; A6213; A6250; A6258; A6449; A6590; C1751; C1758; G0378; J0169; J0456; J0692; J0696; J1120; J1815; J1938; J2470; J2704; J2916; J3010; J3375; J3480; J3490; J7030; J7040; J7120; J7512; Q9967

== ENCOUNTER 2025-07-08 15:26 | Inpatient (IN) | payer MEDICARE, MEDICAID ==
[~2025-07-08] VITALS: Ht 165.1 cm; Wt 135.0 kg
[~2025-07-08 15:26] MED LIST changes: -ARIP5TAB12 PO; +ARIP5TAB53 PO; -ASPI-1265 PO; +ASPI-611 PO; -ATOR40TA PO; +ATOR40TA72 PO; +BACL20TA PO; -BACL20TA11 PO; -BUDE10.7 INH; +BUPR2TAB11 SL; +FLUO40CA PO; -FLUO40CA10 PO; +FLUT1BLS4 INH; -FURO-150 PO; +FURO80TA3 PO; -HYDR-3965 PO; +HYDR-3973 PO; +NITR0.4T51 SL; +OMEP20CA16 PO; -OMEP40CA21 PO; +POTA-366 PO; +PRED10TA23 PO; -SACU1TAB PO; +SILV25CR21 TOP
--- NOTE | 2025-07-08 15:45 | ELECTROCARDIOGRAPH REPORT ---
[facility] Test Date: 2025-07-08 Test Time: 15:41:44 Pat Name: LINDA SIERRA Department: [facility]-ER Patient ID: [facility]-[id number] Room: Gender: M Clinical Systems Analyst: : 1955 Requested By: MIRELA MCCLENDON Order Number: [id number] Reading MD: Dr. Watson Villela Measurements Intervals Parks Rate: 99 P: 46 CT: 155 QRS: -12 QRSD: 91 T: 29 QT: 343 QTc: 441 Interpretive Statements Sinus tachycardia Atrial premature complex Borderline low voltage, extremity leads Electronically Signed On 07-08-2025 19:25:[address] Watson Villela Please click the below link to view image of tracing.
[2025-07-08 16:02] LABS: MEAN PLATELET VOLUME 7.9 FL (7.4-10.4); RED CELL DISTRIBUTION WIDTH 18.7 % (11.5-14.5)
--- NOTE | 2025-07-08 16:06 | RADIOLOGY REPORT ---
CHEST RADIOGRAPH Indication: CP Technique: DI CHEST,SINGLE VIEW COMPARISON: None FINDINGS: The cardiac silhouette is enlarged. The lungs demonstrate bilateral patchy airspace opacities. The pulmonary vasculature is prominent. There is no pleural effusion. There is no pneumothorax. IMPRESSION: Cardiomegaly with pulmonary vascular congestion and bilateral patchy airspace opacities.
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
[2025-07-08 16:23] LABS: CREATININE 0.71 MG/DL (0.60-1.10); PRO BRAIN NATRIURETIC PEPTIDE < 30 PG/ML (0-125); eCRCL 85 ML/MIN; eGFR > 90 ML/MIN
[2025-07-08 16:27] LABS: TOTAL CARBON DIOXIDE 40.1 MMOL/L (24-32)
[2025-07-08 17:39] LABS: LEUKOCYTE ESTERASE ,URINE NEGATIVE (Neg); NITRITES, URINE NEGATIVE (Neg); OCCULT BLOOD,URINE NEGATIVE (Neg)
[2025-07-08 17:40] LABS: UA COLLECTION TYPE STRAIGHT CATH
[2025-07-08 17:45] LABS: URINE AMPHETAMINE SCREEN NEGATIVE (Neg); URINE BARBITUATE SCREEN NEGATIVE (Neg); URINE BENZODIAZEPINES SCREEN NEGATIVE (Neg); URINE CANNABINOID SCREEN NEGATIVE (Neg); URINE COCAINE SCREEN NEGATIVE (Neg); URINE METHADONE SCREEN NEGATIVE (Neg); URINE OPIATE SCREEN NEGATIVE (Neg); URINE PHENCYCLIDINE SCREEN NEGATIVE (Neg)
[2025-07-08 17:46] LABS: SQUAMOUS EPITHELIAL CELL,UR FEW /LPF (FEW)
[2025-07-08] MEDS ORDERED: magnesium Cl slow-release 64mg tablet PO PRN (19:30)
[2025-07-08] MEDS ORDERED: potassium Cl 40MEQ/1/2NS 520ml 520 ML IV PRN (19:30)
[2025-07-08] MEDS ORDERED: ondansetron/PF 4mg/2ml inj IV PRN (19:30)
[2025-07-08] MEDS ORDERED: mag hydrox/Alum hydrox/simeth 30ml oral suspension PO PRN (19:30)
[2025-07-08] MEDS ORDERED: magnesium sulf-water 4G/100mL 100 ML IV PRN (19:30)
[2025-07-08] MEDS ORDERED: magnesium sulf-water 2g/50mL 50 ML IV PRN (19:30)
[2025-07-08] MEDS ORDERED: potassium Cl 20 mEq SR tablet PO PRN ×2 (19:30)
[2025-07-08] MEDS ORDERED: azithromycin/NS 500mg/250ml 250 ML IV SCH (19:40)
[2025-07-08] MEDS ORDERED: albuterol 2.5 MG/3 ML nebule NEB PRN (19:40)
--- NOTE | 2025-07-08 19:50 | HISTORY AND PHYSICAL-Residence ---
History & Physical Providers to CC Resident Creating Document: JORGE L MARI, RES ~ History of Present Illness Primary Medical Doctor: unk Reason for Admit\Complaint: shortness of breath History of Present Illness This is a 69 years old male with past medical history of CAD s/p Stent placement,Diabetes mellitus, COPD,Anxiety, depression,Obesity, BPH, Comes Emergency Department with complaints of worsening shortness of breath and generalized weakness over the past few days. He uses home oxygen at 4.5 L/min and is non-compliant with CPAP therapy. He reports increased difficulty breathing and reduced mobility. The patient sleeps with four pillows and keeps his bed in an inclined position to alleviate symptoms. He denies recent fever, cough, sputum production, chest pain, abdominal pain, nausea, vomiting, diarrhea, chills, recent travel, or known infections. No other complaints are reported at this time. Allergies: Coded Allergies: No Known Allergies (Unverified , 07/08/25) Home Medications Home Medications Active Culturelle (Lactobacillus Rhamnosus) 10 Billion Cell Capsule 1 Cap PO BID 30 Days Prednisone 10 Mg Tablet 0 PO DAILY Take 4 tabs daily x3 days, then 3 daily x3 days 2 daily x3 days 1 daily x3 days 1/2 daily x3 days then STOP Reported Nitrostat SL* (Nitroglycerin) 0.4 Mg Tablet 1 Tab SL Q5MIN PRN Hydrocodone-Apap 10-325 Tablet (Acetaminophen/Hydrocodone Bitart) 10mg/325mg Tablet 1 Tablet PO Q6H PRN Furosemide 80 Mg Tablet 1 Tab PO DAILY Omeprazole 20 Mg Capsule.dr 1 Cap PO DAILY Metformin HCl 500 Mg Tablet 1 Tab PO DAILY Aspir 81 (Aspirin) 81 Mg Tablet.dr 1 Tab PO DAILY Aripiprazole 5 Mg Tablet 1 Tab PO DAILY Atorvastatin Calcium 40 Mg Tablet 2 Tab PO DAILY Flomax* (Tamsulosin HCl) 0.4 Mg Cap.sr.24h 1 Cap PO DAILY Baclofen 20 Mg Tablet 1 Tab PO TID PRN Potassium Chloride 20 Meq Tablet.er 1 Tab PO DAILY Fluoxetine Hcl 40 Mg Capsule 1 Cap PO DAILY Gabapentin 800 Mg Tablet 1 Tab PO DAILY Xarelto (Rivaroxaban) 10 Mg Tablet 1 Tab PO DAILY Buprenorphine Hcl 2 Mg Tab.subl 1 Tab SL HS Buprenorphine Hcl 2 Mg Tab.subl 0.5 Tab SL QAM Ssd (Silver Sulfadiazine) 1 % Cream..g. 1 Applic TOP DAILY Trelegy Ellipta 100-62.5-25 (Fluticasone/Umeclidin/Vilanter) 100-62.5 Blst.w.dev 1 Puffs INH DAILY Jardiance (Empagliflozin) 10 Mg Tablet 1 Tab PO DAILY Past Medical History Past Medical History COPD Sepsis CHF with preserved ejection fraction Diabetes mellitus Metabolic encephalopathy, hypoxic hypercapnic respiratory failure requiring endotracheal intubation Past Surgical History Surgical History Comment Back surgery Coronary artery disease status post stent about 20 years ago Family History Family History: FH: cancer (Father and mother, patient does not know about the type of cancer) Past Social History Smoking: Quit greater than 1 year Alcohol Use: None Drug Use: None ROS All Other Systems: Reviewed and Negative Constitutional: Reports: weakness Eyes: Reports: no symptoms reported ENT: Reports: no symptoms reported Respiratory: Reports: shortness of breath Cardiovascular: Reports: no symptoms reported Gastrointestinal: Reports: no symptoms reported Genitourinary: Reports: no symptoms reported Male Genitalia: Reports: no symptoms reported Neurological: Reports: no symptoms reported Musculoskeletal: Reports: no symptoms reported Integumentary: Reports: no symptoms reported Allergic/Immunologic: Reports: no symptoms reported Hematologic/Lymphatic: Reports: no symptoms reported Endocrine: Reports: no symptoms reported Psychiatric: Reports: no symptoms reported Exam Vitals: Vital Signs Date Time Temp Pulse Resp B/P (MAP) Pulse Ox O2 Delivery O2 Flow Rate FiO2 07/08/25 19:37 98.2 73 11 92/46 (61) 99 4.5 07/08/25 15:39 Nasal Cannula* N/A General: GENERAL: Obese ,Awake,Drowsy HEENT : Normocephalic, atraumatic, pupils equal and reactive to light, extraocular movements intact, no scleral icterus or conjunctival pallor,oral mucosa is dry. NECK: neck is supple, trachea midline, no lymphadenopathy, no thyromegaly, no JV distention RESPIRATORY: Chest expansion equal bilaterally, breath sounds decreased bilaterally, no wheezes,No crackles CARDIOVASCULAR: S1 and S2 heard, no murmurs, no rubs, or gallops ABDOMEN: Soft, nontender, distended, bowel sounds present and normoactive. NEUROLOGICAL: Alert, oriented, normal memory, speech is deep Cranial nerves II-XII- intact Sensation-intact in all extremities EXTREMITIES: Mild redness and Edema present on bilateral lower extremities, peripheral pulses felt SKIN: pressure Ulcer seen on Posterior buttock, Psychiatric:Appropriate mood and affect Diagnostic Data Last Recorded Lab Results: 07/08/25 1555 07/08/25 1555 Advance Care Planning Advanced Care plannin - 30 Minutes Additional Plan 69 years old male with history of CHF preserved ejection fraction, COPD, coronary artery disease, anxiety/depression, BPH, presented to the ED due Tiredness and shortness of breath Acute hypoxic hypercapnic respiratory failure 2/2 Pneumonia Patient uses 4.5 L oxygen at home and he is currently on 4.5 L oxygen maintaining saturation of 98 WBC 9.9, procalcitonin 0.05, Chest X-ray- Cardiomegaly with pulmonary vascular congestion and bilateral patchy airspace opacitie ABG-pCO2 69,HC03-38.3 CT chest- No significant change from prior CT. Right mid to lower lung consolidations may represent atelectasis and/or pneumonia. No new pulmonary opacity Started-ipratropium/albuterol q.4h, albuterol q.2h p.r.n., Solu-Medrol 40 mg IV b.i.d., ceftriaxone 1 g IV daily, azithromycin 500 mg IV daily Ordered incentive spirometry Started on acetazolamide 250 mg p.o. b.i.d. for 48 hours Patient is placed on BiPAP, Follow up with CBC/CMP Anemia possible iron def anemia iron-23L, %sat-9L Given a Dose of IV Sodium ferric gluconate 250mg F/P with CBC Respiratory Acidosis with metabolic compensation Patient is currently on 4.5L oxygen Started on acetazolamide 250 mg p.o. b.i.d. 48 hours Patient is placed on BiPAP Moderate Protein Malnutrition Started Ensure- Enlive Coronary artery disease S/P Stent placement Continue home aspirin/atorvastatin/rivaroxaban Type 2 diabetes mellitus Hyperglycemia, A1c: 6.3(on Apr) Patient takes metformin 500 mg Started on Hypoglycemia/Hyperglycemia protocol Congestive heart failure with preserved ejection fraction-not in acute decompensation Echo-on 05/01/25 Shows LV is mildly dilated with mild concentric hypertrophy. Overall systolic function is normal. LVEF is 60-65%. Continue home med Jardiance 10 mg, hold Lasix Sacral decubitus Ulcer wound care consulted History of anxiety/depression Continue home meds aripiprazole/fluoxetine Peripheral neuropathy Continue home med gabapentin 800 mg BPH Continue home med tamsulosin 0.4 mg H/O Back pain Continue home med Baclofen Code Status: DNR DVT prophylaxis: Rivaroxaban Analgesia/Sedation: Morphine/Josue Line/tube: Peripheral PT: Ordered Prognosis: Guarded Disposition: Patient will be monitored in PCU with telemetry Jorge L Mari PGY1-Internal Medicine Resident I saw and discussed the care of this pt with the resident team agree with assessment and plan Date of Service: Jul 08, 2025 Billing Provider: GUNNAR LLANOS MD, SATISH, RES Jul 08, 2025 19:50 GUNNAR LLANOS MD Jul 09, 2025 09:05
[2025-07-08] MEDS: K and/or MAG REPLACEMENT MC SCH (20:00)
[2025-07-08] MEDS: docusate sod 100mg capsule PO SCH (20:00)
[2025-07-08] MEDS: ipratropium/albuterol 3ml nebule ONE (20:09)
[2025-07-08 20:19] VITALS: PULSE 73; RESP 12; O2SAT 98
--- NOTE | 2025-07-08 20:20 | RADIOLOGY REPORT ---
Procedure: CT CT CHEST Reason for study/Clinical History: Suspected Pnemonia Comparison Study: CT CT CHEST on DOS: 07/02/25 TECHNIQUE: Multidetector CT of the chest was performed from the lung apices to the upper abdomen without the use of intravenous contract. Axial, coronal and sagittal multiplanar reformats were performed. Radiation Dose Information: CT Dose: CTDI volume is 27 mGy. Dose-length product is 1335 mGy*cm The dose indicators for CT are the volume Computed Tomography (CT) Dose Index (CTDIvol) and the Dose Length Product (DLP), and are measured in units of mGy and mGy-cm, respectively. These indicators are not patient dose, but values generated from the CT scanner acquisition factors. The report includes radiation exposure data for exposures received during this examination. FINDINGS: Lower neck: Prominent size of the thyroid without discrete nodule. Lungs: Expiratory exam. Similar appearance of platelike and consolidative airspace disease in the right mid to lower lung. Additional mild scarring/atelectasis in the left lung base. No new consolidation. Central airways are clear. Heart/Vascular Structures: Normal heart size. No pericardial effusion. Multivessel coronary atherosclerosis. Lymph Nodes: No adenopathy Pleura: No pleural effusion or significant pneumothorax. Musculoskeletal: No acute osseous abnormality. Degenerative changes of the shoulders and spine. Soft tissues: Small hiatal hernia. Upper abdomen: Cholelithiasis. Multiple incompletely characterized renal cystic lesions. IMPRESSION: 1. No significant change from prior CT. Right mid to lower lung consolidations may represent atelectasis and/or pneumonia. No new pulmonary opacity. 2. Other unchanged chronic and incidental findings as above. Radiation optimization: All CT scans at this facility use at least one of these dose optimization techniques: automated exposure control mA and/or kV adjustment per patient size (includes targeted exams where dose is matched to clinical indication) or iterative reconstruction.
[2025-07-08 20:22] VITALS: PULSE 76; RESP 12
[2025-07-08] MEDS: methylPREDNISolone sod succ/PF 40mg inj. IV SCH (20:34)
[2025-07-08] MEDS: CefTRIAXone/D5W-Rocephin 1gm 50 ML IV SCH (20:35)
[2025-07-08] MEDS: heparin, porcine 5000 units/ml vial SQ SCH (20:35)
[2025-07-08 20:41] LABS: % IRON SATURATION 9 % (11-46)
[2025-07-08 21:03] LABS: ABG BASE EXCESS 10.4 mmol/L (-2.0-3.0); ABG HCO3 38.3 mmol/L (21.0-28.0); ABG OXYGEN SATURATION 91.6 % (94.0-98.0); ABG PCO2 (T) 69.0 mmHg (35.0-48.0); ABG PH (T) 7.361 (7.350-7.450); ABG PO2 (T) 66.3 mmHg (83.0-108.0); ALLEN'S TEST Yes; FCOHb 0.4 % (0.5-1.5); FHHb 8.3 % (0.0-5.0); FIO2 42.0 mmHg/%; FLOW 4 L/min; FMetHb 0.3 % (0.0-1.5); FO2Hb 91.0 % (94.0-98.0); MODE NASAL CANNULA; PATIENT TEMPERATURE 36.9; TOTAL HEMOGLOBIN 11.8 G/dl (13.5-17.5)
[2025-07-08 21:30] VITALS: BP 116/62; PULSE 72; RESP 11; RESP 15; TEMP 97.2; O2SAT 91
[2025-07-08] MEDS ORDERED: glucagon, human recombinant 1mg kit SUBCUT PRN (22:25)
[2025-07-08] MEDS ORDERED: dextrose 50%-water 50ml dispensing syringe IV PRN ×2 (22:25)
[2025-07-08] MEDS ORDERED: DEXTROSE 15 GM of carb/4 tabs (each vial/BOTTLE has 4 tablets) PO PRN ×2 (22:25)
[2025-07-08] MEDS: sodium ferric gluc complex inj 250 MG in normal saline 100ml IV soln 100 ML IV ONE (22:27)
[2025-07-08] MEDS: normal saline 1000ml 1,000 ML IV SCH (22:28)
[2025-07-08] MEDS: ipratropium/albuterol 3ml nebule NEB SCH (23:00)
[2025-07-09] VITALS (18 sets, daily range): BP systolic 102–133; BP diastolic 51–74; PULSE 57–106; RESP 11–28; TEMP 97–97.8; O2SAT 90–98
[2025-07-09] MEDS: HYDROcodone/acetaminophen 10/325mg tab PO ONE (03:20)
[2025-07-09 06:25] LABS: MEAN PLATELET VOLUME 8.3 FL (7.4-10.4); RED CELL DISTRIBUTION WIDTH 19.4 % (11.5-14.5)
[2025-07-09 06:52] LABS: CREATININE 0.62 MG/DL (0.60-1.10); TOTAL CARBON DIOXIDE 37.9 MMOL/L (24-32); eCRCL 98 ML/MIN; eGFR > 90 ML/MIN
[2025-07-09] MEDS: INSULIN LISPRO 100 UNIT/ML INSULN.PEN MULTI-DOSE SQ SCH (07:00)
[2025-07-09] MEDS: EMPAGLIFLOZIN 10 MG TABLET PO SCH (07:40)
[2025-07-09] MEDS: Ensure Enlive - 237ML PO SCH (08:00)
[2025-07-09] MEDS: azithromycin/NS 500mg/250ml 250 ML IV SCH (08:20)
[2025-07-09] MEDS: rivaroxaban 10mg tablet PO SCH (10:10)
--- NOTE | 2025-07-09 11:25 | PROGRESS NOTE ---
Daily Progress Note Providers to CC ~ Antibiotic Timeout Antibiotic Ordered?: Yes Subjective No acute events overnight. Patient examined at bedside. No new complaints not in acute distress. Patient denies chest pain, sob, palpitations, abdominal pain, n/v/d. Vss, on 6L O2, labs notable for downtrending bicarb. 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: CN II-XII intact, no focal deficits Musculoskeletal: No paraspinal muscle tenderness, no muscle spasm Skin: Pressure ulcer stage III, left buttock Problem\Assessment\Plan 69 years old male with history of CHF preserved ejection fraction, COPD, coronary artery disease, anxiety/depression, BPH, presented to the ED due Tiredness and shortness of breath Assessment & Plan Acute hypoxic hypercapnic respiratory failure 2/2 COPD exacerbation Respiratory acidosis Acute COPD exacerbation Community-acquired pneumonia, covering for Gram-positive and Gram-negative Patient uses 4.5 L oxygen at home, procal neg, lactic acid normal, ABG compensated resp acidosis CT chest shows right mid to lower lung consolidations may represent atelectasis and/or pneumonia 07/09: continue steroid, bronchodilators, abx, IS Anemia, microcytic -follow iron studies Moderate Protein Malnutrition Started Ensure- Enlive Coronary artery disease S/P Stent placement NIDDM Chronic diastolic heart failure, not in acute decompensation -hypoglycemia/Hyperglycemia protocol, continue home aspirin/atorvastatin/rivaroxaban -Echo-on 05/01/25 Shows LV is mildly dilated with mild concentric hypertrophy. Overall systolic function is normal. LVEF is 60-65%. GDMT as tolerated Sacral decubitus ulcer -follow CT, wound care consulted History of anxiety/depression -Continue home meds aripiprazole/fluoxetine Peripheral neuropathy -Continue home med gabapentin 800 mg BPH -Continue home med tamsulosin 0.4 mg Code Status: DNR DVT prophylaxis: Rivaroxaban Date of Service: Jul 09, 2025 Billing Provider: SOUMYA KENNEDY Common Visit Codes: [id number] INP/OBS CARE(HIGH) SOUMYA KENNEDY Jul 09, 2025 11:25
[2025-07-09] MEDS: methylPREDNISolone sod succ/PF 40mg inj. IV SCH (14:24)
[2025-07-09] MEDS: normal saline 500ml IV soln 500 ML IV ONE (14:25)
[2025-07-09] MEDS: normal saline 1000ml 1,000 ML IV SCH (14:58)
[2025-07-09] MEDS ORDERED: iohexol 300mg/ml 100ml inj. ONE (15:38)
--- NOTE | 2025-07-09 18:59 | RADIOLOGY REPORT ---
CT CT PELVIS W/ IV CONTRAST INDICATION: cellulitis, scral/coccyx, left buttock TECHNIQUE: Volumetric multidetector CT images of the pelvis were obtained after the administration of intravenous contrast. CT scans at this facility use dose modulation, iterative reconstruction, and/or weight based dosing when appropriate to reduce radiation dose to as low as reasonably achievable. COMPARISON: CT CT ABDOMEN PELVIS on DOS: 05/01/25 FINDINGS: [BLADDER]: Unremarkable for the degree distention. [PELVIC ORGANS]: Unremarkable. [BOWEL/MESENTERY]: No CT evidence of bowel obstruction.[id number] stool burden. Correlate for constipation. [ASCITES]: Absent [LYMPHADENOPATHY]: No pathologically enlarged lymph nodes by CT size criteria [VASCULATURE]: Vascular calcifications. [ABDOMINAL WALL]: Unremarkable. [MUSCULOSKELETAL]: No acute fracture or aggressive focal osseous lesion. Multifocal degenerative change of the visualized spine. Near regards to the clinical question, no CT evidence of osteomyelitis. No abnormal area of osseous erosion, sclerosis. Altered anatomy with retrolisthesis L5 over S1 and in tervertebral disc height loss L3-4 and L4-5. Vascular calcifications. Benign- appearing cysts of bilateral kidneys. Asymmetric skin thickening and underlying phlegmon overlying the left gluteus adi compatible with sacral decubitus ulcer/cellulitis. IMPRESSION: 1. No CT evidence of osteomyelitis or drainable fluid collection 2. Asymmetric skin thickening and underlying phlegmon overlying the left gluteus adi compatible with sacral decubitus ulcer/cellulitis.
[2025-07-09] MEDS: HYDROcodone/acetaminophen 5mg/325mg tablet PO PRN (19:39)
[2025-07-10] VITALS (24 sets, daily range): BP systolic 102–123; BP diastolic 54–66; PULSE 67–107; RESP 12–24; TEMP 97.5–98; O2SAT 91–96
[2025-07-10 07:03] LABS: MEAN PLATELET VOLUME 8.4 FL (7.4-10.4); RED CELL DISTRIBUTION WIDTH 19.6 % (11.5-14.5)
[2025-07-10 07:58] LABS: CREATININE 0.53 MG/DL (0.60-1.10); TOTAL CARBON DIOXIDE 31.3 MMOL/L (24-32); eCRCL 114 ML/MIN; eGFR > 90 ML/MIN
[2025-07-10] MEDS ORDERED: ipratropium/albuterol 3ml nebule NEB SCH (08:00)
[2025-07-10] MEDS: multivitamins, therapeutics tablet PO SCH (08:52)
[2025-07-10] MEDS: methylPREDNISolone sod succ/PF 40mg inj. IV SCH (08:52)
[2025-07-10] MEDS: JUVEN Smoothie Arginine/Glut./Ca2+Bmb (Juven 19.3pkt) 240ml cup PO SCH (08:55)
[2025-07-10] MEDS: Ensure Enlive - 237ML PO SCH (12:40)
--- NOTE | 2025-07-10 13:02 | PROGRESS NOTE ---
Daily Progress Note Providers to CC ~ Antibiotic Timeout Antibiotic Ordered?: Yes If Yes, Indications: PNA, cellulitis Subjective No acute events overnight. Patient examined at bedside. No new complaints, not in acute distress. Patient denies chest pain, sob, palpitations, abdominal pain, n/v/d. Vss, on 5L O2, labs notable for normalized bicarb. CT reveals sacral decubitus ulcer, no evidence of colitis or fluid collection. Continued on abx and with wound care. 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 Assessment & Plan Acute hypoxic hypercapnic respiratory failure 2/2 COPD exacerbation Respiratory acidosis Acute COPD exacerbation Community-acquired pneumonia, covering for Gram-positive and Gram-negative Sacral decubitus ulcer Patient uses 4.5 L oxygen at home, procal neg, lactic acid normal, ABG compensated resp acidosis CT chest shows right mid to lower lung consolidations may represent atelectasis and/or pneumonia 07/09: continue steroid, bronchodilators, abx, IS 07/10: normalized bicarb; CT shows sacral decubitus ulcer, no evidence of colitis or fluid collection, continue wound care pending wound culture -on levofloxacin and Zosyn Anemia, microcytic -follow iron studies Moderate Protein Malnutrition Started Ensure- Enlive Coronary artery disease S/P Stent placement NIDDM Chronic diastolic heart failure, not in acute decompensation -hypoglycemia/Hyperglycemia protocol, continue home aspirin/atorvastatin/rivaroxaban -Echo-on 05/01/25 Shows LV is mildly dilated with mild concentric hypertrophy. Overall systolic function is normal. LVEF is 60-65%. GDMT as tolerated History of anxiety/depression -Continue home meds aripiprazole/fluoxetine Peripheral neuropathy -Continue home med gabapentin 800 mg BPH -Continue home med tamsulosin 0.4 mg Code Status: DNR DVT prophylaxis: Rivaroxaban Disposition: rehab Date of Service: Jul 10, 2025 Billing Provider: SOUMYA KENNEDY Common Visit Codes: [id number] INP/OBS CARE(HIGH) SOUMYA KENNEDY Jul 10, 2025 13:01
[2025-07-10] MEDS: piperacillin/tazo 3.375gm/50ml 50 ML IV SCH (16:17)
[2025-07-10] MEDS: magnesium hydroxide 30ml (MOM) UD suspension PO PRN (18:32)
[2025-07-11] VITALS (10 sets, daily range): BP systolic 111–148; BP diastolic 67–87; PULSE 63–86; RESP 11–22; TEMP 97.7–98; O2SAT 96–99
[2025-07-11 06:42] LABS: MEAN PLATELET VOLUME 8.7 FL (7.4-10.4); RED CELL DISTRIBUTION WIDTH 19.2 % (11.5-14.5)
[2025-07-11 06:54] LABS: CREATININE 0.61 MG/DL (0.60-1.10); TOTAL CARBON DIOXIDE 31.2 MMOL/L (24-32); eCRCL 99 ML/MIN; eGFR > 90 ML/MIN
[2025-07-11] MEDS: levoFLOXACIN-Levaquin 750MG/D5 150 ML IV SCH (07:27)
[2025-07-11 08:46] LABS: BANDS% (MANUAL) 2.0 % (0-10); ELLIPTOCYTES 1+; LYMPHOCYTES % (MANUAL) 4.0 % (21-51); METAMYLEOCYTES% (MANUAL) 2.0 % (0-0); NEUTROPHILS % (MANUAL) 92.0 % (42-75); PLATELET ESTIMATE NORMAL
[2025-07-11] MEDS ORDERED: ALBU18HF2 INH (10:37)
[2025-07-11] MEDS ORDERED: PRED10TA23 PO (10:37)
[2025-07-11] MEDS ORDERED: LEVO750T68 PO (11:32)
--- NOTE | 2025-07-11 12:44 | DISCHARGE SUMMARY ---
Discharge Summary Providers to CC ~ Discharge Summary Admission Diagnosis: COPD exacerbation, PNA, sepsis Hospital Course DATE OF ADMISSION: 07/08/25 DATE OF DISCHARGE: 07/11/25 Discharge Diagnosis\\Comment: Acute hypoxic hypercapnic respiratory failure 2/2 COPD exacerbation Respiratory acidosis Acute COPD exacerbation Community-acquired pneumonia, covering for Gram-positive and Gram-negative Sacral decubitus ulcer Anemia, microcytic Fe-deficiency anemia Moderate Protein Malnutrition Coronary artery disease S/P Stent placement NIDDM Chronic diastolic heart failure, not in acute decompensation History of anxiety/depression Peripheral neuropathy BPH Operations\\Procedures: None Consultants: None Complications: None Condition on DC: Stable New Medications: Albuterol Sulfate (Ventolin Hfa) 90 Mcg Hfa.aer.ad 2 PUFFS INH Q4HPRN PRN for wheezing for 30 Days, #18 GM 0 Refills Ferrous Sulfate (Ferrous Sulfate) 325 Mg (65 Mg Iron) Tablet 1 TAB PO DAILY for 90 Days, #90 TAB 0 Refills Take 1 tablet by mouth on an empty stomach once daily Levofloxacin (Levofloxacin) 750 Mg Tablet 750 MG PO DAILY for 7 Days, #7 TAB Prednisone (Prednisone) 10 Mg Tablet 0 PO DAILY, #42 TAB Take 6 tabs/day x2 days then 5 daily x2 days 4 daily x2 days 3 daily x2 days 2 daily x2 days 1 daily x2 days then stop. Continued Medications: Aripiprazole (Aripiprazole) 5 Mg Tablet 1 TAB PO DAILY Aspirin (Aspir 81) 81 Mg Tablet.dr 1 TAB PO DAILY Atorvastatin Calcium (Atorvastatin Calcium) 40 Mg Tablet 2 TAB PO DAILY Baclofen (Baclofen) 20 Mg Tablet 1 TAB PO TID PRN for MUSCLE SPASM Buprenorphine Hcl (Buprenorphine Hcl) 2 Mg Tab.subl 0.5 TAB SL QAM Empagliflozin (Jardiance) 10 Mg Tablet 1 TAB PO DAILY, TAB 0 Refills Fluoxetine Hcl (Fluoxetine Hcl) 40 Mg Capsule 1 CAP PO DAILY Fluticasone/Umeclidin/Vilanter (Trelegy Ellipta 100-62.5-25) 100-62.5 Blst.w.dev 1 PUFFS INH DAILY Gabapentin (Gabapentin) 800 Mg Tablet 1 TAB PO DAILY Lactobacillus Rhamnosus (Culturelle) 10 Billion Cell Capsule 1 CAP PO BID for 30 Days, #60 CAP 0 Refills Metformin HCl (Metformin HCl) 500 Mg Tablet 1 TAB PO DAILY, TAB Nitroglycerin SL* (Nitrostat SL*) 0.4 Mg Tablet 1 TAB SL Q5MIN PRN for Chest pain Q5min PRNx3-call MD, #25 TAB Omeprazole (Omeprazole) 20 Mg Capsule.dr 1 CAP PO DAILY Rivaroxaban (Xarelto) 10 Mg Tablet 1 TAB PO DAILY Silver Sulfadiazine (Ssd) 1 % Cream..g. 1 APPLIC TOP DAILY Tamsulosin Hcl* (Flomax*) 0.4 Mg Cap.sr.24h 1 CAP PO DAILY Discontinued Medications: Furosemide (Furosemide) 80 Mg Tablet 1 TAB PO DAILY Hydrocodone Bit/Acetaminophen (Hydrocodone-Apap 10-325 Tablet) 10mg/325mg Tablet 1 TABLET PO Q6H PRN for moderate or severe pain 4-10, #20 TABLET Potassium Chloride (Potassium Chloride) 20 Meq Tablet.er 1 TAB PO DAILY Prednisone (Prednisone) 10 Mg Tablet 0 PO DAILY, #32 TAB Take 4 tabs daily x3 days, then 3 daily x3 days 2 daily x3 days 1 daily x3 days 1/2 daily x3 days then STOP Discharge Summary: History of Present Illness From H&P: "This is a 69 years old male with past medical history of CAD s/p Stent placement,Diabetes mellitus, COPD,Anxiety, depression,Obesity, BPH, Comes Emergency Department with complaints of worsening shortness of breath and generalized weakness over the past few days. He uses home oxygen at 4.5 L/min an d is non-compliant with CPAP therapy. He reports increased difficulty breathing and reduced mobility. The patient sleeps with four pillows and keeps his bed in an inclined position to alleviate symptoms. He denies recent fever, cough, sputum production, chest pain, abdominal pain, nausea, vomiting, diarrhea, chills, recent travel, or known infections. No other complaints are reported at this time." Hospital Course Diagnostic findings were notable for ABG revealing respiratory acidosis and CT chest revealing right mid to lower lung pneumonia and sacral decubitus ulcer without evidence of osteomyelitis or fluid collection. Patient was treated with steroid, bronchodilators, empirical antibiotics, supplemental oxygen, wound care. Patient did not experience further complications throughout the entire hospital stay and remained clinically and hemodynamically stable. Patient was seen and examined on the day of discharge. On day of discharge, vss on 5L O2 via nasal cannula, and labs unremarkable. All labs, diagnostic workups, discharge plan discussed with patient in details during visit before discharge. All questions and concerns answered to the best of my professional knowledge. Patient adamantly refused to be discharged to rehab. Patient is to be discharged with HH and to follow-up with PCP within 2 weeks. Patient is referred to outpatient learning specialist, pulmonary rehab, and outpatient wound care clinic upon discharge. 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
[2025-07-11] MEDS ORDERED: FER325T PO (12:51)
== END 2025-07-11 13:07 | disposition home health service (06) | DRG 177 ==
LOC: ER 15:26 → ED HOLD 19:32 → PCU 3S 21:22
PROVIDERS: ADMIT Internal Medicine; ATTEND Nurse Practitioner Family
PROC: BW2G1ZZ Computerized Tomography (CT Scan) of Pelvic Region using Low Osmolar Contrast (ICD-10-PCS; principal; 2025-07-09)
DX: J15.69 Pneumonia due to other Gram-negative bacteria (principal); J96.01 Acute respiratory failure with hypoxia; J96.02 Acute respiratory failure with hypercapnia; L89.159 Pressure ulcer of sacral region, unspecified stage; E44.0 Moderate protein-calorie malnutrition; E87.29 Other acidosis; Z66 Do not resuscitate; D53.8 Other specified nutritional anemias; J44.0 Chronic obstructive pulmonary disease with (acute) lower respiratory infection; J15.9 Unspecified bacterial pneumonia; I50.32 Chronic diastolic (congestive) heart failure; Z68.42 Body mass index [BMI] 45.0-49.9, adult; E11.65 Type 2 diabetes mellitus with hyperglycemia; F32.A Depression, unspecified; J44.1 Chronic obstructive pulmonary disease with (acute) exacerbation; I25.10 Atherosclerotic heart disease of native coronary artery without angina pectoris; N40.0 Benign prostatic hyperplasia without lower urinary tract symptoms; E11.42 Type 2 diabetes mellitus with diabetic polyneuropathy; F41.9 Anxiety disorder, unspecified; Z79.82 Long term (current) use of aspirin; Z79.899 Other long term (current) drug therapy; Z95.5 Presence of coronary angioplasty implant and graft; Z91.199 Patient's noncompliance with other medical treatment and regimen due to unspecified reason
CPT/HCPCS: 36415; 36600; 71045; 71250; 72193; 80048; 80053; 80305; 81001; 82728; 82803; 82948; 83540; 83550; 83605; 83735; 83880; 84145; 84484; 85007; 85018; 85025; 87040; 87070; 87075; 87077; 87081; 87102; 93005; 94640; 94760; 96372; 97161; 97530; 99285; A6213; A6223; A6253; A6258; A6260; A6449; C1758; G0378; J0456; J0696; J1644; J1815; J1956; J2543; J2916; J2919; J7030; J7040; Q9967